=== PATIENT | female | born 1985 | race Caucasian/White ===

== ENCOUNTER 2020-08-15 15:49 | Emergency (ER) | payer MEDICAID, SELFPAY ==
[2020-08-15 15:57] VITALS: BP 119/76; PULSE 83; RESP 16; TEMP 37.1; O2SAT 100
[2020-08-15 16:11] VITALS: BP 119/76; PULSE 83; RESP 16; TEMP 37.1; O2SAT 100; BMI 30.2
--- NOTE | 2020-08-15 16:16 | ED.WOUNDLAC ---
HPI - Wound/Laceration General Chief Complaint: Wound/Laceration Stated Complaint: lip bleeding Time Seen by Provider: 08/15/20 16:15 Source: patient Mode of arrival: ambulatory Limitations: no limitations History of Present Illness HPI narrative: Patient is a 34-year-old female with no significant past medical history who presents to the emergency department complaining of upper lip pain. Patient states she had a lip ring in her upper central lip placed in March, stated had healed well but today when she was hugging her boyfriend she went to pull away and it got caught on his sweater and ripped out. It was fully intact but she did not bring it with her so I could inspect it. She will look at it again when she gets home. States it did bleed but the bleeding has stopped. Denies numbness or tingling. Onset (ago): minute(s) Place: home Related Data Allergies Allergy/AdvReac Type Severity Reaction Status Date / Time No Known Allergies Allergy Unverified 07/15/20 17:26 Review of Systems Review of Systems: Yes all other systems are reviewed and are negative [facility] Past Medical History Attestation statement: The following information was validated with the patient. Medical History Herpes Social History Social History Advance Directives: No Advance Directives Information Provided: No Physical Exam Vital Signs: Vital Signs: Vital Signs Temp Pulse Resp BP Pulse Ox 08/15/20 16:11 98.7 F 83 16 119/76 100 08/15/20 15:57 98.7 F 83 16 119/76 100 Body Mass Index 30.2 Const: General: cooperative, healthy appearing and comfortable (Patient is slightly teary) Orientation/consciousness: patient oriented x3 HENMT: Head: Yes normal to inspection Ears: hearing grossly normal bilaterally General nose exam: Normal external nose present (Three nose rings intact and fully healed) Face and sinus: Yes normal facial exam Mouth: Normal oral and palatal mucosa present Mouth/tongue images: 1. 1 cm laceration, not bleeding. Swollen, no foreign bodies palpated Eyes: General: appearance normal, both eyes and all related structures Neck: Neck: Yes normal visual inspection Neuro: General: patient oriented x3 Course Course Course Narrative: Advised lip laceration will heal on its own, avoid spicy foods. Use ice and ibuprofen as needed. Discharge Plan Discharge Clinical Impression: Laceration of lip without foreign body Qualifiers: Encounter type: initial encounter Qualified Code(s): S01.511A - Laceration without foreign body of lip, initial encounter Patient Disposition: Home, Self-Care Additional Instructions: Use ice and ibuprofen as needed. Avoid spicy foods. If the area becomes red, any discharge happens or you spike a fever, please come in for re-evaluation or see your PCP as these could be signs of infection.
== END 2020-08-15 16:36 | disposition home or self-care (01) ==
PROVIDERS: Emergency Provider Emergency Medicine
DX: S01.511A Laceration without foreign body of lip, initial encounter (principal); W45.8XXA Other foreign body or object entering through skin, initial encounter; Y93.9 Activity, unspecified; Y92.9 Unspecified place or not applicable; Y99.9 Unspecified external cause status
CPT/HCPCS: 99283

== ENCOUNTER 2020-09-04 18:17 | Emergency (ER) | payer MEDICAID, SELFPAY ==
[2020-09-04 18:31] VITALS: BP 127/81; PULSE 70; RESP 18; TEMP 37; O2SAT 99; BMI 30.7
--- NOTE | 2020-09-04 18:34 | ED.ABDPAIN ---
HPI - Abdominal Pain General Chief Complaint: Abdominal Pain Stated Complaint: abd pain Time Seen by Provider: 09/04/20 18:24 Source: patient Mode of arrival: ambulatory Limitations: no limitations History of Present Illness HPI narrative: Patient comes to the emergency room complaining of epigastric pain. Patient states it is a burning sensation. The discomfort started approximately 1 week ago. Patient states every time she eats she has sharp pain in the epigastric region. Patient states she has had history of gastritis in the past. Patient stop taking omeprazole a few months ago because she was doing well. Patient reports 1 episode of vomiting throughout the week, at this time no vomiting, no diarrhea. Related Data Previous Rx's Medication Instructions Recorded omeprazole 40 mg PO DAILY #10 cap 09/04/20 Allergies Allergy/AdvReac Type Severity Reaction Status Date / Time No Known Allergies Allergy Verified 09/04/20 18:30 Review of Systems Review of Systems Constitutional : No Weight loss, No Fever, No Chills, No Night Sweats, No Fatigue, No Malaise ENT/Mouth : No Hearing loss, No Ear Pain, No Nasal Congestion, No Sinus Pain, No Hoarseness, No sore throat, No Rhinorrhea, No Swallowing Difficulty Eyes: No Eye Pain, No Swelling, No Redness, No Foreign Body, No Discharge, No Vision Changes Cardiovascular : No Chest Pain, No SOB, No Dyspnea on Exertion, No Orthopnea, No Edema, No Palpitations Respiratory : No Cough, No Sputum, No Wheezing, No Smoke Exposure, No Dyspnea Gastrointestinal : Patient complaining of nausea, no vomiting, no diarrhea, complaining of epigastric pain worse with meals. No Hematochezia, No Melena Genitourinary : no irregular bleeding, No Dysuria, No Urinary Frequency, No Hematuria, No Urinary Incontinence, No Urgency, No Flank Pain, No Urinary Flow Changes, No Hesitancy Musculoskeletal : No joint pain, No Myalgias, No Joint Swelling Skin : No Skin Lesions, No rash Neuro : No Weakness, No Numbness, No Paresthesias, No Loss of Consciousness, No Dizziness, No Headache Psych : No Anxiety/Panic, No Depression, No SI/HI/AH/VH, No Social Issues, Heme/Lymph: No Bruising, No Bleeding,No Lymphadenopathy Endocrine : No Polyuria, No Polydipsia, No Temperature Intolerance Physical Exam Vital Signs: Vital Signs: Last Vital Signs Temp 98.6 F 09/04/20 20:55 Pulse 57 09/04/20 20:55 Resp 16 09/04/20 20:55 BP 107/69 09/04/20 20:55 Pulse Ox 99 09/04/20 20:55 Body Mass Index 30.7 Appearance: Alert. Oriented X3. No acute distress. Eyes: Pupils equal, round and reactive to light. ENT: Pharynx normal. Neck: Normal inspection. Neck supple. No lymph nodes noted. No crepitus CVS: Normal heart rate and rhythm. Pulses normal. Normal S1 and S2 Respiratory: No respiratory distress. Breath sounds normal. No Wheezing. No rales Abdomen: no right upper quadrant pain, pain to palpation in the epigastric area, abdomen soft, rest of the abdomen nontender, normal bowel sounds Skin: Skin warm and dry. Normal skin color. Normal skin turgor. Extremities: No lower extremity edema. No lower extremity edema. No Lacerations. No Rash Neuro: Oriented X 3. No motor deficit. No sensory deficit. Moving all extermities. No slurred speech. Course Course Course Narrative: I discussed the labs and imaging with the patient, patient does not have cholecystitis. Patient is source of pain in the epigastric area likely to reoccurring peptic ulcer disease versus gastritis. 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 MDM - Abdominal Pain Lab Data Result diagrams: 09/04/20 18:43 09/04/20 18:43 Labs: Lab Results 09/04/20 09/04/20 09/04/20 Range/Units 18:43 18:43 19:13 WBC 6.6 (4.8-10.8) X10*3/uL RBC 3.92 L (4.20-5.50) X10*6/uL Hgb 12.4 (12.0-16.0) g/dl Hct 36.0 L (37-47) % MCV 91.8 (80-98) fL MCH 31.6 (27.0-33.0) pg MCHC 34.4 (31.0-35.0) g/dl RDW 12.4 (11.0-16.0) % Plt Count 348 (160-400) X10*3/uL MPV 10.3 (9.4-12.3) fL Immature Gran % (Auto) 0.2 (0.0-0.4) % Neut % (Auto) 42.2 L (45-73) % Lymph % (Auto) 37.4 (20-40) % [place] % (Auto) 12.1 H (2-11) % Eos % (Auto) 7.2 H (0-4) % Baso % (Auto) 0.9 (0-2) % Lymph # (Auto) 2.5 (1.2-4.9) X10*3/uL [place] # (Auto) 0.8 (0.1-1.2) X10*3/uL Eos # (Auto) 0.5 H (0.0-0.4) X10*3/uL Baso # (Auto) 0.1 (0.0-0.2) X10*3/uL Abs Immat Gran (auto) 0.01 (0.00-0.03) X10*3/uL Absolute Neuts (auto) 2.8 (2.0-8.3) X10*3/uL Absolute Nucleated RBC 0.000 (0.0-0.012) X10*3/uL Nucleated RBC % (auto) 0.0 (0.0-0.2) /100WBC Sodium 137 (135-145) mmol/L Potassium 3.7 (3.3-5.1) mmol/l Chloride 104 (96-108) mmol/L Carbon Dioxide 25 (22-29) mmol/L Anion Gap 12 (12-20) BUN 12 (9-16) mg/dL Creatinine 0.93 (0.5-1.4) mg/dL Estim Creat Clear Calc 97.6 Estimated GFR > 60 Random Glucose 82 (60-115) mg/dL Calcium 8.9 (8.4-10.2) mg/dL Total Bilirubin 0.3 (0.0-1.0) mg/dL Direct Bilirubin < 0.2 (0.0-0.5) mg/dL AST 14 (5-31) U/L ALT 12 (0-31) U/L Alkaline Phosphatase 68 (39-117) U/L Total Protein 6.7 (6.5-8.0) g/dL Albumin 4.1 (3.5-5.0) g/dL Lipase 40 (8-78) U/L Urine Test NEGATIVE (NEGATIVE) Imaging Data US - abdomen: Radiologist's impression: PANCREAS: The visualized pancreatic head and body are normal in appearance. The remainder of the pancreas is obscured from visualization by the overlying bowel gas. LIVER: The liver is of normal size and echogenicity without focal lesions nor intrahepatic biliary ductal dilation. GALLBLADDER: Normal. The gallbladder is physiologically distended without evidence of stones, sludge, polyps, wall thickening or pericholecystic fluid. COMMON BILE DUCT: Normal in caliber measuring 0.3 cm in diameter. RIGHT KIDNEY: Normal. No hydronephrosis. No renal calculi or focal parenchymal lesions. The kidney measures 9.8 cm in maximum dimension. FREE FLUID: None. Discharge Plan Discharge Clinical Impression: Gastritis Qualifiers: Gastritis type: unspecified gastritis Chronicity: unspecified Gastritis bleeding: without bleeding Qualified Code(s): K29.70 - Gastritis, unspecified, without bleeding Patient Disposition: Home, Self-Care Instructions: Gastritis (ED) Additional Instructions: Please follow-up with your primary care physician tomorrow. If you have any worsening or new symptoms, please return to the emergency room or call 911 Prescriptions: New omeprazole 40 mg capsule,delayed release(DR/EC) 40 mg PO DAILY Qty: 10 RF: 0 PMFSH Past Medical History Medical History Herpes Stomach ulcer Surgical History Hx of breast reduction, elective Social History Social History Alcohol intake: current Alcohol intake frequency: a few times a week Smoking Status: Current some day smoker Smoked in Last 30 Days: Yes Use of substances other than those prescribed or required for medical reasons: No Advance Directives: No Advance Directives Information Provided: Yes
--- NOTE | 2020-09-04 18:37 | US_ITS ---
EXAMINATION: ABDOMINAL ULTRASOUND LIMITED CLINICAL INFORMATION: Epigastric pain. COMPARISON: None. TECHNIQUE: Real-time imaging of the right upper quadrant abdominal viscera. FINDINGS: PANCREAS: The visualized pancreatic head and body are normal in appearance. The remainder of the pancreas is obscured from visualization by the overlying bowel gas. LIVER: The liver is of normal size and echogenicity without focal lesions nor intrahepatic biliary ductal dilation. GALLBLADDER: Normal. The gallbladder is physiologically distended without evidence of stones, sludge, polyps, wall thickening or pericholecystic fluid. COMMON BILE DUCT: Normal in caliber measuring 0.3 cm in diameter. RIGHT KIDNEY: Normal. No hydronephrosis. No renal calculi or focal parenchymal lesions. The kidney measures 9.8 cm in maximum dimension. FREE FLUID: None. US/US abdomen limited IMPRESSION: Unremarkable limited right upper quadrant ultrasound.
[2020-09-04] MEDS: Magnesium Hydrox/Alum Hydrox 30 ML ORAL.SUSP PO (18:47)
[2020-09-04] MEDS: Lidocaine HCl Viscous 2 % 15 ML SOLUTION MUCOUS MEM (18:47)
[2020-09-04 18:49] LABS: Basophils Absolute Auto 0.1 X10*3/uL (0.0-0.2); Basophils Percent Auto 0.9 % (0-2); Eosinophils Absolute Auto 0.5 X10*3/uL (0.0-0.4); Eosinophils Percent Auto 7.2 % (0-4); Hemoglobin 12.4 g/dl (12.0-16.0); Imm Gran Abs Auto 0.01 X10*3/uL (0.00-0.03); Imm Gran Pct Auto 0.2 % (0.0-0.4); Lymphocytes Absolute Auto 2.5 X10*3/uL (1.2-4.9); Lymphocytes Percent Auto 37.4 % (20-40); MANUAL DIFF FLAG NO; Mean Corpuscular HGB Conc 34.4 g/dl (31.0-35.0); Mean Corpuscular Hemoglobin 31.6 pg (27.0-33.0); Mean Corpuscular Volume 91.8 fL (80-98); Mean Platelet Volume 10.3 fL (9.4-12.3); Monocytes Absolute Auto 0.8 X10*3/uL (0.1-1.2); Monocytes Percent Auto 12.1 % (2-11); Neutrophils Absolute Auto 2.8 X10*3/uL (2.0-8.3); Neutrophils Percent Auto 42.2 % (45-73); Platelet Count 348 X10*3/uL (160-400); Red Blood Count 3.92 X10*6/uL (4.20-5.50); Red Cell Distribution Width 12.4 % (11.0-16.0); White Blood Count 6.6 X10*3/uL (4.8-10.8)
[2020-09-04 19:15] LABS: Alanine Aminotransferase 12 U/L (0-31); Albumin Level 4.1 g/dL (3.5-5.0); Alkaline Phosphatase 68 U/L (39-117); Anion Gap 12 (12-20); Aspartate Amino Transferase 14 U/L (5-31); Bilirubin Direct < 0.2 mg/dL (0.0-0.5); Bilirubin Total 0.3 mg/dL (0.0-1.0); Blood Urea Nitrogen 12 mg/dL (9-16); Calcium 8.9 mg/dL (8.4-10.2); Carbon Dioxide 25 mmol/L (22-29); Chloride 104 mmol/L (96-108); Creatinine Clr Calc Pharmacy 97.6; Estimated Glomerular Filt Rate > 60; Glucose Random 82 mg/dL (60-115); Lipase 40 U/L (8-78); Potassium 3.7 mmol/l (3.3-5.1); Sodium 137 mmol/L (135-145); Total Protein 6.7 g/dL (6.5-8.0)
[2020-09-04 19:23] LABS: UPreg QC Valid YES; Urine Pregnancy NEGATIVE (NEGATIVE)
[2020-09-04 20:00] VITALS: BP 106/75; PULSE 62; RESP 18; TEMP 36.8; O2SAT 98
[2020-09-04 20:55] VITALS: BP 107/69; PULSE 57; RESP 16; TEMP 37; O2SAT 99
== END 2020-09-04 21:35 | disposition home or self-care (01) ==
PROVIDERS: Emergency Provider Emergency Medicine
DX: K29.70 Gastritis, unspecified, without bleeding (principal); R10.13 Epigastric pain; Z79.899 Other long term (current) drug therapy
CPT/HCPCS: 36415; 76705; 80048; 80076; 81025; 83690; 85025; 99284

== ENCOUNTER 2020-09-25 09:28 | Observation (INO) | payer MEDICAID, SELFPAY ==
[2020-09-25 09:56] VITALS: PULSE 80; RESP 20; TEMP 36.6; O2SAT 98; BMI 31.0
--- NOTE | 2020-09-25 09:57 | US_ITS ---
EXAMINATION: US ABDOMEN COMPLETE CLINICAL INFORMATION: Nausea vomiting and upper abdominal pain. Question cholecystitis.. COMPARISON: September 04, 2020 TECHNIQUE: Real-time imaging of the abdominal viscera. FINDINGS: PANCREAS: Normal. ABDOMINAL AORTA: The proximal, mid, and distal segments are normal in caliber. INFERIOR VENA CAVA: Visualized portions are normal. LIVER: Normal. The liver is normal in size. The liver contour is normal. Parenchymal echogenicity is normal. No focal hepatic lesion. There is no intrahepatic biliary duct dilatation seen. GALLBLADDER: There is tenderness to palpation while scanning. On the provided images The gallbladder is physiologically distended without evidence of stones, sludge, polyps, wall thickening or pericholecystic fluid. COMMON BILE DUCT: On the provided images the common bile duct appears to measure 7 mm distally and questionably up to 1.5 cm in its mid region with some echogenic filling defects which would be representing calculi if this definitely is a common bile duct. No calculi were identified on the previous study of September 04, 2020 and the common bile duct was not dilated. MRCP may be of help in further evaluation of these findings. RIGHT KIDNEY: Normal. No hydronephrosis. No renal calculi or focal parenchymal lesions. The kidney measures 10.5 cm in maximum dimension. LEFT KIDNEY: Normal. No hydronephrosis. No renal calculi or focal parenchymal lesions. The kidney measures 10.8 cm in maximum dimension. SPLEEN: Normal. The spleen measures 9.1 cm in maximum dimension. FREE FLUID: None. US/US abdomen complete IMPRESSION: No intrahepatic bile duct dilatation or evidence of acute cholecystitis. On provided films question of dilated common bile duct with calculi however on previous ultrasound examination no definite calculi were identified within the gallbladder. Further evaluation with MRCP would be helpful in clarification.
--- NOTE | 2020-09-25 09:57 | ED_ITS ---
HPI - Nausea/Vomiting/Diarrhea General Chief complaint: Nausea/Vomiting/Diarrhea Stated complaint: VOMITTING Time Seen by Provider: 09/25/20 09:49 Source: patient Mode of arrival: ambulatory Limitations: no limitations History of Present Illness HPI Narrative: 34yoF c PMHx of stomach ulcer and herpes presenting to the ED c c/o N/V and severe upper abd pain x 2 days. Denies fevers, chills, back pain, dysuria, vaginal bleeding/discharge or thoughts or . Denies recent travel or sick contacts. Denies any other symptom complaints or concerns at this time. Related Data Previous Rx's Medication Instructions Recorded omeprazole 40 mg PO DAILY #10 cap 09/04/20 Allergies Allergy/AdvReac Type Severity Reaction Status Date / Time No Known Allergies Allergy Verified 09/04/20 18:30 Review of Systems Review of Systems: Constitutional : No Fever, No Chills, No Night Sweats, No Fatigue, No Malaise Cardiovascular : No Chest Pain, No SOB Respiratory : No Cough, No Sputum, No Wheezing, No Dyspnea Gastrointestinal : + Nausea, + Vomiting, No Diarrhea, + abdominal Pain, No Hematochezia, No Melena Genitourinary : No irregular bleeding, No Dysuria, No Urinary Frequency, No Hematuria,No Urinary Incontinence, No Urgency, No Flank Pain Musculoskeletal : No joint pain, No Myalgias, No Joint Swelling Skin : No Skin Lesions, No rash Neuro : No Weakness, No Numbness, No Paresthesias, No Loss of Consciousness, No Dizziness, No Headache Heme/Lymph: No Lymphadenopathy Endocrine : No Temperature Intolerance Yes all other systems are reviewed and are negative PMFSH Past Medical History Attestation statement: The following information was validated with the patient. Medical History Herpes Stomach ulcer Surgical History Hx of breast reduction, elective Social History Social History Alcohol intake: current Alcohol intake frequency: a few times a week Smoking Status: Current every day smoker Use of substances other than those prescribed or required for medical reasons: No Advance Directives: No Advance Directives Information Provided: No Physical Exam Vital Signs: Vital Signs: Last Vital Signs Temp 97.8 F 09/25/20 09:56 Pulse 80 09/25/20 09:56 Resp 16 09/25/20 12:27 Pulse Ox 98 09/25/20 09:56 Body Mass Index 31.0 vital signs have been reviewed as normal and appeared to be correct. Blood pressure normal. Heart rate normal. Respiration rate normal. Temperature normal. Oxygen saturation normal. Appearance: Alert. Oriented X3. No acute distress. Head: Normal external exam. Normocephalic. Eyes: PERRLA. EOMI. Conjunctiva and sclera normal. Eyelids normal. ENT: Pharynx normal. Uvula midline. Moist mucous membranes. No trismus noted. No drooling noted. No muffled voice noted. Neck: Normal inspection. Neck supple. FROM. No adenopathy. No meningeal signs. CVS: Normal heart rate and rhythm. Heart sound normal. No murmurs noted. Pulses normal throughout. Respiratory: No respiratory distress. Painless inspiration. Breath sounds normal. No wheezes/rales/rhonchi noted. Chest nontender. No accessory muscle usage noted or decreased air movement noted. Abdomen: Soft and TTP at upper/epigastric abdomen with guarding. No rigidity. Positive Pagan sign. Bowel sounds normal in all 4 quadrants. No distention noted. No organomegaly noted. No visible injury noted. No rebound tenderness. Negative Rovsing sign. Negative obturator's sign. Negative psoas sign. Back: No CVA tenderness. Full range of motion noted. Skin: Skin warm and dry. Normal skin color. Normal skin turgor. No rashes/lesions/lacerations noted. Extremities: Extremities exhibit normal range of motion. Extremities nontender. Neuro: Oriented X 3. No motor deficit. No sensory deficit. Reflexes normal. Course Course Course Narrative: 9:55am - 34yoF c PMHx of stomach ulcer and herpes presenting to the ED c c/o N/V and severe upper abd pain x 2 days. - Concern for Cholecystitis vs pancreatitis vs viral syndrome. - Plan: Labs, UA, US pf abd. Provide a L of IV fluids, 4 mg of Zofran and 2 mg of morphine as patient does not want anything too strong. Then re-evaluate Reevaluation(s) Reevaluation #1: [place] [id number]. Otherwise all other labs are within normal limits. Serum quant negative for . UA within normal limits no evidence of UTI. COVID swab negative. Ultrasound of abdomen questioning possible calculi in the common bile duct therefore CT scan abdomen without contrast ordered and revealed possible acute appendicitis therefore Dr. Santiago was consulted patient was started on Zosyn after blood cultures were obtained. Lactic acid not obtain as patient does not meet sepsis criteria. Patient will be admitted for appendicitis. Patient un codys agrees with this plan. Time: 15:00 MDM - Nausea/Vomiting/Diarrhea Medical Records Attestation: I reviewed the patient's medical records. Lab Data Attestation: I reviewed the patient's lab results. Result diagrams: 09/25/20 10:04 09/25/20 10:04 Labs: Lab Results 09/25/20 09/25/20 09/25/20 Range/Units 10:04 10:04 10:04 WBC 17.1 H (4.8-10.8) X10*3/uL RBC 4.25 (4.20-5.50) X10*6/uL Hgb 13.1 (12.0-16.0) g/dl Hct 38.9 (37-47) % MCV 91.5 (80-98) fL MCH 30.8 (27.0-33.0) pg MCHC 33.7 (31.0-35.0) g/dl RDW 12.2 (11.0-16.0) % Plt Count 304 (160-400) X10*3/uL MPV 11.0 (9.4-12.3) fL Immature Gran % (Auto) 0.4 (0.0-0.4) % Neut % (Auto) 90.1 H (45-73) % Lymph % (Auto) 4.3 L (20-40) % [place] % (Auto) 4.9 (2-11) % Eos % (Auto) 0.1 (0-4) % Baso % (Auto) 0.2 (0-2) % Lymph # (Auto) 0.7 L (1.2-4.9) X10*3/uL [place] # (Auto) 0.8 (0.1-1.2) X10*3/uL Eos # (Auto) 0.0 (0.0-0.4) X10*3/uL Baso # (Auto) 0.0 (0.0-0.2) X10*3/uL Abs Immat Gran (auto) 0.06 H (0.00-0.03) X10*3/uL Absolute Neuts (auto) 15.4 H (2.0-8.3) X10*3/uL Absolute Nucleated RBC 0.000 (0.0-0.012) X10*3/uL Nucleated RBC % (auto) 0.0 (0.0-0.2) /100WBC Smear Tech's Comments VERIFIED PT 12.6 (10.8-13.0) SEC INR 1.1 (0.9-1.1) Sodium 138 (135-145) mmol/L Potassium 4.2 (3.3-5.1) mmol/l Chloride 102 (96-108) mmol/L Carbon Dioxide 23 (22-29) mmol/L Anion Gap 17 (12-20) BUN 14 (9-16) mg/dL Creatinine 0.80 (0.5-1.4) mg/dL Estim Creat Clear Calc 114.0 Estimated GFR > 60 Random Glucose 134 H D (60-115) mg/dL Calcium 9.3 (8.4-10.2) mg/dL Magnesium 1.8 (1.6-2.6) mg/dL Total Bilirubin 0.5 (0.0-1.0) mg/dL Direct Bilirubin 0.2 (0.0-0.5) mg/dL AST 12 (5-31) U/L ALT 13 (0-31) U/L Alkaline Phosphatase 66 (39-117) U/L Total Protein 7.3 (6.5-8.0) g/dL Albumin 4.5 (3.5-5.0) g/dL Lipase 13 (8-78) U/L Beta HCG, Quant mIU/mL Urine Color Urine Appearance Urine pH (5.0-8.0) Ur Specific [place] (1.005-1.025) Urine Protein (NEG-TRACE) MG/DL Urine Glucose (UA) (NEG) MG/DL Urine Ketones (NEG) MG/DL Urine Blood (NEG) Urine Nitrite (NEG) Ur Leukocyte Esterase (NEG) Urine RBC (0) /HPF Urine WBC (0-4) /HPF Ur Squamous Epith Cells /LPF Urine Bacteria /LPF Urine Mucus /LPF COVID-19 (ESVIN) (Negative) COVID-19 Clin Com 09/25/20 09/25/20 09/25/20 Range/Units 10:04 10:42 12:29 WBC (4.8-10.8) X10*3/uL RBC (4.20-5.50) X10*6/uL Hgb (12.0-16.0) g/dl Hct (37-47) % MCV (80-98) fL MCH (27.0-33.0) pg MCHC (31.0-35.0) g/dl RDW (11.0-16.0) % Plt Count (160-400) X10*3/uL MPV (9.4-12.3) fL Immature Gran % (Auto) (0.0-0.4) % Neut % (Auto) (45-73) % Lymph % (Auto) (20-40) % [place] % (Auto) (2-11) % Eos % (Auto) (0-4) % Baso % (Auto) (0-2) % Lymph # (Auto) (1.2-4.9) X10*3/uL [place] # (Auto) (0.1-1.2) X10*3/uL Eos # (Auto) (0.0-0.4) X10*3/uL Baso # (Auto) (0.0-0.2) X10*3/uL Abs Immat Gran (auto) (0.00-0.03) X10*3/uL Absolute Neuts (auto) (2.0-8.3) X10*3/uL Absolute Nucleated RBC (0.0-0.012) X10*3/uL Nucleated RBC % (auto) (0.0-0.2) /100WBC Smear Tech's Comments PT (10.8-13.0) SEC INR (0.9-1.1) Sodium (135-145) mmol/L Potassium (3.3-5.1) mmol/l Chloride (96-108) mmol/L Carbon Dioxide (22-29) mmol/L Anion Gap (12-20) BUN (9-16) mg/dL Creatinine (0.5-1.4) mg/dL Estim Creat Clear Calc Estimated GFR Random Glucose (60-115) mg/dL Calcium (8.4-10.2) mg/dL Magnesium (1.6-2.6) mg/dL Total Bilirubin (0.0-1.0) mg/dL Direct Bilirubin (0.0-0.5) mg/dL AST (5-31) U/L ALT (0-31) U/L Alkaline Phosphatase (39-117) U/L Total Protein (6.5-8.0) g/dL Albumin (3.5-5.0) g/dL Lipase (8-78) U/L Beta HCG, Quant < 2 mIU/mL Urine Color YELLOW Urine Appearance CLEAR Urine pH 8.0 (5.0-8.0) Ur Specific [place] 1.020 (1.005-1.025) Urine Protein TRACE (NEG-TRACE) MG/DL Urine Glucose (UA) NEG (NEG) MG/DL Urine Ketones NEG (NEG) MG/DL Urine Blood TRACE (NEG) Urine Nitrite NEG (NEG) Ur Leukocyte Esterase NEG (NEG) Urine RBC 1-4 (0) /HPF Urine WBC 0 (0-4) /HPF Ur Squamous Epith Cells TRACE /LPF Urine Bacteria NONE /LPF Urine Mucus TRACE /LPF COVID-19 (ESVIN) Negative (Negative) COVID-19 Clin Com See Note Imaging Data Abdominal ultrasound: Attestation: I personally reviewed and interpreted this imaging study as follows: Radiologist's impression: IMPRESSION: No intrahepatic bile duct dilatation or evidence of acute cholecystitis. On provided films question of dilated common bile duct with calculi however on previous ultrasound examination no definite calculi were identified within the gallbladder. Further evaluation with MRCP would be helpful in clarification. CT scan - abdomen: Attestation: I personally reviewed and interpreted this imaging study as follows: Radiologist's impression: IMPRESSION: Findings consistent with acute appendicitis. Clinical correlation suggested. No common bile duct dilatation or calculi identified and ultrasound finding may have been related to imaging of the duodenum bony bump at prominent seen at the confluence of the common hepatic, common bile, and cystic ducts. This critical result was discussed with VALENTIN Ace at 1:55 PM on September 25, 2020 and it was ascertained that the content and urgency of the report was understood at the time of direct communication. Critical Care Time Critical Care Time Critical Care Time: Yes Total Critical Care Time: 60 Attestation: I personally attest to this time spent taking care of the patient Discharge Plan Discharge Clinical Impression: Acute appendicitis Patient Disposition: Admitted As Inpatient Prescriptions: No Action omeprazole 40 mg capsule,delayed release(DR/EC) 40 mg PO DAILY Qty: 10 RF: 0
[2020-09-25] MEDS: 0.9 % Sodium Chloride 1,000 ML 999 ML IVCONT (10:08)
[2020-09-25] MEDS: Morphine Sulfate 2 MG/ML CARTRIDGE IVPUSH (10:08)
[2020-09-25] MEDS: ondansetron HCL 4 MG/2 ML VIAL IVPUSH (10:08)
[2020-09-25 10:38] LABS: Basophils Percent Auto 0.2 % (0-2); Eosinophils Percent Auto 0.1 % (0-4); Hematocrit 38.9 % (37-47); Hemoglobin 13.1 g/dl (12.0-16.0); Imm Gran Abs Auto 0.06 X10*3/uL (0.00-0.03); Imm Gran Pct Auto 0.4 % (0.0-0.4); Lymphocytes Absolute Auto 0.7 X10*3/uL (1.2-4.9); Lymphocytes Percent Auto 4.3 % (20-40); MANUAL DIFF FLAG SCAN; Mean Corpuscular HGB Conc 33.7 g/dl (31.0-35.0); Mean Corpuscular Hemoglobin 30.8 pg (27.0-33.0); Mean Corpuscular Volume 91.5 fL (80-98); Monocytes Absolute Auto 0.8 X10*3/uL (0.1-1.2); Monocytes Percent Auto 4.9 % (2-11); Neutrophils Absolute Auto 15.4 X10*3/uL (2.0-8.3); Neutrophils Percent Auto 90.1 % (45-73); Platelet Count 304 X10*3/uL (160-400); Red Blood Count 4.25 X10*6/uL (4.20-5.50); Red Cell Distribution Width 12.2 % (11.0-16.0); SCAN SMEAR FLAG 1; White Blood Count 17.1 X10*3/uL (4.8-10.8)
[2020-09-25 10:45] LABS: INTERNATIONAL NORM RATIO 1.1 (0.9-1.1); Prothrombin Time 12.6 SEC (10.8-13.0)
[2020-09-25 11:01] LABS: COVID-19 Test Negative (Negative); IDNOW Serial# 9DD0AD1C
[2020-09-25 11:15] LABS: Alanine Aminotransferase 13 U/L (0-31); Albumin Level 4.5 g/dL (3.5-5.0); Alkaline Phosphatase 66 U/L (39-117); Anion Gap 17 (12-20); Aspartate Amino Transferase 12 U/L (5-31); Bilirubin Direct 0.2 mg/dL (0.0-0.5); Bilirubin Total 0.5 mg/dL (0.0-1.0); Blood Urea Nitrogen 14 mg/dL (9-16); Calcium 9.3 mg/dL (8.4-10.2); Carbon Dioxide 23 mmol/L (22-29); Chloride 102 mmol/L (96-108); Estimated Glomerular Filt Rate > 60; Glucose Random 134 mg/dL (60-115); Lipase 13 U/L (8-78); Magnesium 1.8 mg/dL (1.6-2.6); Potassium 4.2 mmol/l (3.3-5.1); Sodium 138 mmol/L (135-145); Total Protein 7.3 g/dL (6.5-8.0)
[2020-09-25 11:21] LABS: HCG Quantitative < 2 mIU/mL
[2020-09-25 11:30] LABS: SLIDE REVIEW VERIFIED
--- NOTE | 2020-09-25 11:43 | CT_ITS ---
EXAMINATION: CT ABDOMEN AND PELVIS WITHOUT CONTRAST CLINICAL INFORMATION: Pain. Question common bile duct stone. COMPARISON: Ultrasound of same day and September 04, 2020 TECHNIQUE: Multidetector volumetric imaging was performed from the superior aspect of the liver through the pubic symphysis. Sagittal and coronal reformatted images were obtained on the technologist's workstation. This CT examination was performed using dose optimization techniques as appropriate, variously including the following: *Automated exposure control *Adjustment of mA and/or kV according to patient size (this includes techniques or standardized protocols for targeted exams where dose is matched to indication/reason for exam; i.e. extremities or head) *Use of iterative reconstruction technique DLP: 657.10 mGy-cm FINDINGS: LUNG BASES: The visualized lung bases are unremarkable. No pleural or pericardial effusion. LIVER, GALLBLADDER, AND BILIARY TREE: The liver is normal in size, shape, and attenuation. No focal hepatic lesion or intrahepatic biliary ductal dilatation is present. Gallbladder is distended without evidence of gallbladder wall thickening or pericholecystic fluid. The common hepatic duct confluence measures up to 1.4 cm in diameter with no radiopaque filling defect appreciated and no common bile duct dilatation appreciated. Question whether ultrasound imaging may have been of the adjacent compressed duodenum. No dilated duct is seen in the region of the pancreatic head and no pancreatic ductal dilatation is identified. PANCREAS: Unremarkable. SPLEEN: Unremarkable. ADRENAL GLANDS: Unremarkable. KIDNEYS AND URETERS: The kidneys are normal in size, shape, and attenuation. No hydronephrosis, hydroureter, or calculi seen. No perinephric stranding. BLADDER: Unremarkable. GASTROINTESTINAL TRACT: No dilated loops of large or small bowel are evident. No evidence of acute diverticulitis. The appendix appears to be enlarged approximately 1 cm in diameter and there is a small amount of periappendiceal and mesenteric fat stranding within the cecum and periappendiceal region with small amount of free fluid. Findings may be related to early or mild acute appendicitis and clinical correlation is suggested. ABDOMINAL WALL: No significant hernia is appreciated. LYMPH NODES: No lymphadenopathy appreciated. VASCULAR: Unremarkable. PELVIC VISCERA: Unremarkable. OSSEOUS STRUCTURES: Unremarkable. CT/CT abdomen pelvis wo con IMPRESSION: Findings consistent with acute appendicitis. Clinical correlation suggested. No common bile duct dilatation or calculi identified and ultrasound finding may have been related to imaging of the duodenum bony bump at prominent seen at the confluence of the common hepatic, common bile, and cystic ducts. This critical result was discussed with VALENTIN Ace at 1:55 PM on September 25, 2020 and it was ascertained that the content and urgency of the report was understood at the time of direct communication.
--- NOTE | 2020-09-25 12:11 | PC.NURSE ---
PT TAKEN TO CT SCAN VIA STRETCHER
[2020-09-25 12:27] VITALS: RESP 16
[2020-09-25] MEDS: Morphine Sulfate 4 MG/ML CARTRIDGE 2 MG IVPUSH ×4 (12:27→21:15)
[2020-09-25 12:35] LABS: Glucose Urine UA NEG (NEG); Leukocyte Esterase Urine NEG (NEG); Nitrite Urine NEG (NEG); Urine Blood TRACE (NEG); Urine Ketones NEG (NEG); Urine Protein TRACE MG/DL (NEG-TRACE)
[2020-09-25 12:36] LABS: Appearance Urine CLEAR; Color Urine YELLOW
[2020-09-25 12:44] LABS: Mucus Urine TRACE /LPF; Squamous Epithelial Cell Urine TRACE /LPF; WBC Urine 0 /HPF (0-4)
[2020-09-25] MEDS: Metoclopramide HCl 10 MG/2 ML VIAL IVPUSH (15:06)
[2020-09-25] MEDS: Piperacillin Sodium/Tazobactam 3.375 GM in 0.9 % Sodium Chloride 50 ML IV ×2 (15:06→21:15)
--- NOTE | 2020-09-25 15:09 | PM.HPGS ---
History of Present Illness History of Present Illness Date of Service: 09/25/20 Chief complaint: early acute appendicitis Narrative: Wendie Armstrong is a 34 year old female Presenting with complaints of epigastric abdominal pain since 09/23/2020. Patient reports the onset of pain soon after eating and felt she may have had food poisoning. The pain was associated with nausea and vomiting. She also reports complaints of fever and chills. She denies any other sick contacts. She denies diarrhea or constipation, bloody stools or other abdominal symptoms. She subsequently presented to the emergency department and was found to be tender in the epigastrium. A CT of the abdomen and pelvis revealed a distended gallbladder with possible enlarged common bile duct. No stones were identified on CT scan. Also identified was a dilated appendix with some inflammatory changes surrounding suggestive of an early appendicitis[place] [address]. no evidence of perforation or abscess was identified. An ultrasound of the abdomen was also obtained and revealed no gallstones within the gallbladder or common bile duct. Review of Systems Constitutional: Constitutional: Reports chills, Reports fever(s), Denies headache(s) and Reports poor appetite ENT: Denies dizziness and Denies headache(s) Cardiovascular: Cardiovascular: Denies chest pain, Denies rapid heart rate, Denies palpitations and Denies slow heart rate Respiratory: Respiratory: Denies chest congestion, Denies cough, Denies pain on inspiration and Denies wheezing Gastrointestinal: Gastrointestinal: Reports abdominal pain, Denies bloating, Denies change in stool character, Denies constipation, Denies diarrhea, Reports nausea, Reports vomiting and Denies hematemesis Musculoskeletal: Musculoskeletal: Denies back pain, Denies arthralgias, Denies joint swelling and Denies numbness Integumentary/Breasts: Skin/Breast: Denies change in pigmentation, Denies erythema and Denies rash Neurologic: Denies confusion, Denies dizziness, Denies headache(s) and Denies numbness Psychiatric: Psychiatric: Denies anxiety, Denies confusion and Reports depression Comments: ADHD Endocrine: Endocrine: Denies palpitations Hematologic/Lymphatic: Hematologic/Lymphatic: Denies easy bleeding, Denies easy bruising and Denies lymphadenopathy Allergic/Immunologic: Allergic/Immunologic: Denies wheezing PMFSH Past Medical History Medical History Herpes Stomach ulcer Surgical History Surgical History Hx of breast reduction, elective Social History Social History Alcohol intake: current Alcohol intake frequency: a few times a week Smoking Status: Current every day smoker Use of substances other than those prescribed or required for medical reasons: No Advance Directives: No Advance Directives Information Provided: No Meds Allergies Allergy/AdvReac Type Severity Reaction Status Date / Time No Known Allergies Allergy Verified 09/04/20 18:30 Physical Exam Vital Signs: Vital Signs: Last Vital Signs Temp 97.8 F 09/25/20 09:56 Pulse 80 09/25/20 09:56 Resp 16 09/25/20 12:27 Pulse Ox 98 09/25/20 09:56 Body Mass Index 31.0 Const: General: cooperative, comfortable and well developed; No confusion Nutritional Appearance: well nourished Orientation/consciousness: patient oriented x3 and No confusion Eyes: Sclerae: sclerae normal EOM: EOMs intact bilaterally Neck: Neck: Yes normal visual inspection Resp: Effort & Inspection: normal respiratory effort, no cough and no respiratory distress Cardio: Jugular venous distension: no JVD Rate: regular rate Rhythm: regular rhythm GI: Inspection: Yes normal to inspection Palpation (GI): Soft to palpation, Tenderness to palpation present (GI) in the epigastrum and suprapubicly; Pagan's sign negative, psoas sign negative, with no rebound tenderness and Rovsing's sign negative, no guarding and not rigid Percussion: Yes normal to percussion Auscultation: normal bowel sounds Skin: General skin exam: dry skin Rashes: no rashes Neuro: General: patient oriented x3, no focal motor deficits and No confusion Extrem: General: Yes full ROM and Yes no clubbing, cyanosis or edema Results Results Labs: Short CBC 09/25/20 Range/Units 10:04 WBC 17.1 H (4.8-10.8) X10*3/uL Hgb 13.1 (12.0-16.0) g/dl Hct 38.9 (37-47) % Plt Count 304 (160-400) X10*3/uL BMP 09/25/20 10:04 Sodium 138 Potassium 4.2 Chloride 102 Carbon Dioxide 23 BUN 14 Creatinine 0.80 Calcium 9.3 Liver Function 09/25/20 Range/Units 10:04 Total Bilirubin 0.5 (0.0-1.0) mg/dL Direct Bilirubin 0.2 (0.0-0.5) mg/dL AST 12 (5-31) U/L ALT 13 (0-31) U/L Alkaline Phosphatase 66 (39-117) U/L Albumin 4.5 (3.5-5.0) g/dL Urine 09/25/20 Range/Units 12:29 Urine Color YELLOW Urine Appearance CLEAR Urine pH 8.0 (5.0-8.0) Ur Specific [place] 1.020 (1.005-1.025) Urine Protein TRACE (NEG-TRACE) MG/DL Urine Glucose (UA) NEG (NEG) MG/DL CT ABDOMEN AND PELVIS (09/25/2020) FINDINGS: LUNG BASES: The visualized lung bases are unremarkable. No pleural or pericardial effusion. LIVER, GALLBLADDER, AND BILIARY TREE: The liver is normal in size, shape, and attenuation. No focal hepatic lesion or intrahepatic biliary ductal dilatation is present. Gallbladder is distended without evidence of gallbladder wall thickening or pericholecystic fluid. The common hepatic duct confluence measures up to 1.4 cm in diameter with no radiopaque filling defect appreciated and no common bile duct dilatation appreciated. Question whether ultrasound imaging may have been of the adjacent compressed duodenum. No dilated duct is seen in the region of the pancreatic head and no pancreatic ductal dilatation is identified. PANCREAS: Unremarkable. SPLEEN: Unremarkable. ADRENAL GLANDS: Unremarkable. KIDNEYS AND URETERS: The kidneys are normal in size, shape, and attenuation. No hydronephrosis, hydroureter, or calculi seen. No perinephric stranding. BLADDER: Unremarkable. GASTROINTESTINAL TRACT: No dilated loops of large or small bowel are evident. No evidence of acute diverticulitis. The appendix appears to be enlarged approximately 1 cm in diameter and there is a small amount of periappendiceal and mesenteric fat stranding within the cecum and periappendiceal region with small amount of free fluid. Findings may be related to early or mild acute appendicitis and clinical correlation is suggested. ABDOMINAL WALL: No significant hernia is appreciated. LYMPH NODES: No lymphadenopathy appreciated. VASCULAR: Unremarkable. PELVIC VISCERA: Unremarkable. OSSEOUS STRUCTURES: Unremarkable. CT/CT abdomen pelvis wo con IMPRESSION: Findings consistent with acute appendicitis. Clinical correlation suggested. No common bile duct dilatation or calculi identified and ultrasound finding may have been related to imaging of the duodenum bony bump at prominent seen at the confluence of the common hepatic, common bile, and cystic ducts. EXAMINATION: US ABDOMEN COMPLETE CLINICAL INFORMATION: Nausea vomiting and upper abdominal pain. Question cholecystitis.. COMPARISON: September 04, 2020 TECHNIQUE: Real-time imaging of the abdominal viscera. FINDINGS: PANCREAS: Normal. ABDOMINAL AORTA: The proximal, mid, and distal segments are normal in caliber. INFERIOR VENA CAVA: Visualized portions are normal. LIVER: Normal. The liver is normal in size. The liver contour is normal. Parenchymal echogenicity is normal. No focal hepatic lesion. There is no intrahepatic biliary duct dilatation seen. GALLBLADDER: There is tenderness to palpation while scanning. On the provided images The gallbladder is physiologically distended without evidence of stones, sludge, polyps, wall thickening or pericholecystic fluid. COMMON BILE DUCT: On the provided images the common bile duct appears to measure 7 mm distally and questionably up to 1.5 cm in its mid region with some echogenic filling defects which would be representing calculi if this definitely is a common bile duct. No calculi were identified on the previous study of September 04, 2020 and the common bile duct was not dilated. MRCP may be of help in further evaluation of these findings. RIGHT KIDNEY: Normal. No hydronephrosis. No renal calculi or focal parenchymal lesions. The kidney measures 10.5 cm in maximum dimension. LEFT KIDNEY: Normal. No hydronephrosis. No renal calculi or focal parenchymal lesions. The kidney measures 10.8 cm in maximum dimension. SPLEEN: Normal. The spleen measures 9.1 cm in maximum dimension. FREE FLUID: None. US/US abdomen complete IMPRESSION: No intrahepatic bile duct dilatation or evidence of acute cholecystitis. On provided films question of dilated common bile duct with calculi however on previous ultrasound examination no definite calculi were identified within the gallbladder. Further evaluation with MRCP would be helpful in clarification. Assessment and Plan (1) Acute appendicitis: Qualifiers: Acute appendicitis type: with localized peritonitis Appendicitis abscess presence: without abscess Appendicitis gangrene presence: without gangrene Appendicitis perforation presence: without perforation Qualified Code(s): K35.30 - Acute appendicitis with localized peritonitis, without perforation or gangrene Status: Acute 34-year-old female presenting with complaints of epigastric abdominal pain, nausea, vomiting found to have tenderness in the epigastrium and suprapubic location. Pain is also associated with fever and chills. Workup with a CT indicates a dilated appendix which is fluid-filled with surrounding inflammation suggestive of acute appendicitis early . Workup for gallstones was negative on both CT and ultrasound. Liver functions are normal as well. Findings are suggestive of acute appendicitis which appears early by CT. there may be biliary duct dilation identified on CT and possibly seen on ultrasound. Patient's examination is consistent with early appendicitis. She will be admitted to the surgical service and started on IV antibiotics. I will keep her NPO , and reassess her in the morning. If the symptoms do not improve she may require a laparoscopic appendectomy. The patient understands and agrees with the plan.
[2020-09-25 17:03] VITALS: BP 141/66; PULSE 72; RESP 16
--- NOTE | 2020-09-25 17:03 | PC.NURSE ---
called to [facility] [place] for pt report, will call back.
--- NOTE | 2020-09-25 17:19 | PC.NURSE ---
[place] [facility] [place]gs.
[2020-09-25 17:36] VITALS: BP 99/54; PULSE 69; RESP 16; TEMP 37.1; O2SAT 100
[2020-09-25] MEDS: 0.9 % Sodium Chloride Flush 3 ML SYRINGE IVFLUSH ×2 (17:48→21:16)
[2020-09-25] MEDS: Dextrose 5 % and Lactated Ring 1,000 ML 125 ML IVCONT (17:48)
--- NOTE | 2020-09-25 18:02 | PC.NURSE ---
Pt to floor from ED. Walked with steady gait, VS stable. Educated pt on plan and medications. Gave pt PRN morphine per EMAR. Encouraged pt to ring for help if needed.
[2020-09-25 23:38] VITALS: BP 91/50; PULSE 74; RESP 18; TEMP 36.8; O2SAT 99
[2020-09-26] MEDS: Acetaminophen 325 MG TABLET 650 MG PO ×4 (01:57→22:49)
[2020-09-26] MEDS: oxyCODONE HCl Immed Release 5 MG TABLET PO ×3 (01:57→20:03)
[2020-09-26] MEDS: Dextrose 5 % and Lactated Ring 1,000 ML 125 ML IVCONT ×3 (01:58→20:04)
[2020-09-26] MEDS: Piperacillin Sodium/Tazobactam 3.375 GM in 0.9 % Sodium Chloride 50 ML IV ×4 (03:12→21:24)
[2020-09-26 03:57] VITALS: BP 96/57; PULSE 85; RESP 18; TEMP 36.8; O2SAT 97
[2020-09-26] MEDS: 0.9 % Sodium Chloride 1,000 ML 999 ML IVCONT (05:40)
--- NOTE | 2020-09-26 06:24 | PC.NURSE ---
P-PT STATES HAS NOT VOIDED SINCE 1400 YESTERDAY.BP-91/50 96/57.AMB PT TO BR UNABLE TO VOID.NO URGE.BLADDER SCANNED FOR 182 ML I- NOTIFIED.ORDERED 1000 ML NS BOLUS. E-BP-94/55 P-55 AFTER NS BOLUS.WILL CONTINUE TO MONITOR.
[2020-09-26 06:41] VITALS: BP 94/55; PULSE 55
[2020-09-26 07:00] LABS: MANUAL DIFF FLAG NO
[2020-09-26 07:08] LABS: Basophils Percent Auto 0.4 % (0-2); Eosinophils Absolute Auto 0.1 X10*3/uL (0.0-0.4); Eosinophils Percent Auto 1.5 % (0-4); Hematocrit 31.5 % (37-47); Hemoglobin 10.3 g/dl (12.0-16.0); Imm Gran Abs Auto 0.02 X10*3/uL (0.00-0.03); Imm Gran Pct Auto 0.3 % (0.0-0.4); Lymphocytes Absolute Auto 1.8 X10*3/uL (1.2-4.9); Lymphocytes Percent Auto 24.3 % (20-40); Mean Corpuscular HGB Conc 32.7 g/dl (31.0-35.0); Mean Corpuscular Hemoglobin 30.8 pg (27.0-33.0); Mean Corpuscular Volume 94.3 fL (80-98); Mean Platelet Volume 10.7 fL (9.4-12.3); Monocytes Absolute Auto 0.7 X10*3/uL (0.1-1.2); Monocytes Percent Auto 9.3 % (2-11); Neutrophils Absolute Auto 4.6 X10*3/uL (2.0-8.3); Neutrophils Percent Auto 64.2 % (45-73); Platelet Count 227 X10*3/uL (160-400); Red Blood Count 3.34 X10*6/uL (4.20-5.50); Red Cell Distribution Width 12.5 % (11.0-16.0); White Blood Count 7.2 X10*3/uL (4.8-10.8)
[2020-09-26 07:48] LABS: Blood Urea Nitrogen 9 mg/dL (9-16); Creatinine Clr Calc Pharmacy 111.2; Estimated Glomerular Filt Rate > 60; Glucose Random 105 mg/dL (60-115)
[2020-09-26 08:00] VITALS: BP 102/56; PULSE 76; RESP 20; TEMP 37.1; O2SAT 95
[2020-09-26 08:02] LABS: Anion Gap 11 (12-20); Calcium 7.5 mg/dL (8.4-10.2); Carbon Dioxide 26 mmol/L (22-29); Chloride 104 mmol/L (96-108); Potassium 3.7 mmol/l (3.3-5.1); Sodium 137 mmol/L (135-145)
[2020-09-26] MEDS: 0.9 % Sodium Chloride Flush 3 ML SYRINGE IVFLUSH (08:19)
--- NOTE | 2020-09-26 09:57 | MHC.CM.PN ---
Pt reports she lives with her children who are ages 15, 13, and 5. Pt works and drives, and is independent with all care and mobility. Pt has no services and no DME. pt does not have a HCP and declines to complete one today. Pt reports she sees a PCP at [facility] in [place]. pts current DC plan is home with no services pts car is in the C lot
--- NOTE | 2020-09-26 09:59 | PM.PNGS ---
Subjective Subjective Date of Service: 09/26/20 Patient reports: feels better and still having pain Interval history: overall the patient feels improved but is still having abdominal pain in the lower abdomen, less so in the epigastrium. She is still not very hungry but denies nausea or vomiting. Physical Exam Vital Signs: Vital Signs: Last Vital Signs Temp 98.7 F 09/26/20 08:00 Pulse 76 09/26/20 08:00 Resp 20 09/26/20 08:00 BP 102/56 L 09/26/20 08:00 Pulse Ox 95 09/26/20 08:00 Body Mass Index 31.0 Const: General: cooperative, healthy appearing and no acute distress Resp: Other: Breathing comfortably on room air, no respiratory distress GI: Other: soft, tender in the suprapubic and right lower quadrant. No palpable mass. On rebound tenderness. negative Rovsing sign. Skin: Other: warm and dry, no rash Progress Note: A&P Assessment and plan (1) Acute appendicitis: Status: Acute Assessment and Plan: overall patient is slightly improved from yesterday with decreased abdominal pain. Her WBC has normalized today. We discussed once again the possibility of requiring an appendectomy. The patient feels well enough that she wishes to continue with the IV antibiotics. If she is not improved by tomorrow, laparoscopic appendectomy or possible open may be required. Patient understands and agrees with the plan. Continue IV antibiotics and recheck CBC in a.m.. Fall Risk Details Current Medications: Current Medications Generic Name Dose Route Start Last Admin Trade Name Freq PRN Reason Stop Dose Admin Acetaminophen 650 mg 09/25/20 17:13 09/26/20 08:19 Acetaminophen 325 Mg Tablet PO 650 mg Q6H PRN Administration Pain, Mild (Pain Scale 1-3) Al Hydroxide/Mg Hydroxide 30 ml 09/25/20 17:13 Magnesium Hydrox/Alum Hydrox 30 Ml Oral.Susp PO Q4H PRN Heartburn/Nausea Piperacillin Sod/Tazobactam 50 mls @ 100 mls/hr 09/25/20 21:00 09/26/20 08:58 Sod 3.375 gm/ Sodium Chloride IV Infused Q6H MASHA Infusion Dextrose/Lactated Ringer's 1,000 mls @ 150 mls/hr 09/25/20 17:13 09/26/20 08:59 D5lr IVCONT Not Given .Q6H40M MASHA Magnesium Hydroxide 30 ml 09/25/20 17:13 Milk Of Magnesia 30 Ml Oral.Susp PO DAILY PRN Constipation Morphine Sulfate 2 mg 09/25/20 17:13 09/25/20 21:15 Morphine Sulfate 4 Mg/Ml Cartridge IVPUSH 2 mg Q2H PRN Administration Pain, Severe (Pain Scale 7-10) Ondansetron HCl 4 mg 09/25/20 17:13 Ondansetron Hcl 4 Mg/2 Ml Vial IVPUSH Q8H PRN Nausea and Vomiting Oxycodone HCl 5 mg 09/25/20 17:13 09/26/20 09:29 Oxycodone Hcl Immed Release 5 Mg Tablet PO 5 mg Q6H PRN Administration Pain, Moderate (Pain Scale 4-6 Pharmacy Consult 1 each 09/25/20 11:45 Consult Rx Perform Med Rec MISCELLANE ONCE PRN Consult order Sodium Chloride 3 ml 09/25/20 17:13 09/26/20 08:19 0.9 % Sodium Chloride Flush 3 Ml Syringe IVFLUSH 3 ml QSHIFT [facility] Administration Zolpidem Tartrate 5 mg 09/25/20 17:13 Zolpidem Tartrate 5 Mg Tablet PO BEDTIME PRN Insomnia Time Spent With Patient Time: Total time spent is greater than 50% in coordination of care (as documented) at patient's floor/unit and/or counseling patient: Time with patient: 15 - 24 minutes Results Laboratory Findings Labs: Laboratory Results - last 24 hr 09/25/20 09/25/20 09/25/20 10:04 10:04 10:04 WBC 17.1 H RBC 4.25 Hgb 13.1 Hct 38.9 MCV 91.5 MCH 30.8 MCHC 33.7 RDW 12.2 Plt Count 304 MPV 11.0 Immature Gran % (Auto) 0.4 Neut % (Auto) 90.1 H Lymph % (Auto) 4.3 L [place] % (Auto) 4.9 Eos % (Auto) 0.1 Baso % (Auto) 0.2 Lymph # (Auto) 0.7 L [place] # (Auto) 0.8 Eos # (Auto) 0.0 Baso # (Auto) 0.0 Abs Immat Gran (auto) 0.06 H Absolute Neuts (auto) 15.4 H Absolute Nucleated RBC 0.000 Nucleated RBC % (auto) 0.0 Smear Tech's Comments VERIFIED PT 12.6 INR 1.1 Sodium 138 Potassium 4.2 Chloride 102 Carbon Dioxide 23 Anion Gap 17 BUN 14 Creatinine 0.80 Estim Creat Clear Calc 114.0 Estimated GFR > 60 Random Glucose 134 H D Calcium 9.3 Magnesium 1.8 Total Bilirubin 0.5 Direct Bilirubin 0.2 AST 12 ALT 13 Alkaline Phosphatase 66 Total Protein 7.3 Albumin 4.5 Lipase 13 Beta HCG, Quant Urine Color Urine Appearance Urine pH Ur Specific [place] Urine Protein Urine Glucose (UA) Urine Ketones Urine Blood Urine Nitrite Ur Leukocyte Esterase Urine RBC Urine WBC Ur Squamous Epith Cells Urine Bacteria Urine Mucus COVID-19 (ESVIN) COVID-19 Fligoo 09/25/20 09/25/20 09/25/20 10:04 10:42 12:29 WBC RBC Hgb Hct MCV MCH MCHC RDW Plt Count MPV Immature Gran % (Auto) Neut % (Auto) Lymph % (Auto) [place] % (Auto) Eos % (Auto) Baso % (Auto) Lymph # (Auto) [place] # (Auto) Eos # (Auto) Baso # (Auto) Abs Immat Gran (auto) Absolute Neuts (auto) Absolute Nucleated RBC Nucleated RBC % (auto) Smear Tech's Comments PT INR Sodium Potassium Chloride Carbon Dioxide Anion Gap BUN Creatinine Estim Creat Clear Calc Estimated GFR Random Glucose Calcium Magnesium Total Bilirubin Direct Bilirubin AST ALT Alkaline Phosphatase Total Protein Albumin Lipase Beta HCG, Quant < 2 Urine Color YELLOW Urine Appearance CLEAR Urine pH 8.0 Ur Specific [place] 1.020 Urine Protein TRACE Urine Glucose (UA) NEG Urine Ketones NEG Urine Blood TRACE Urine Nitrite NEG Ur Leukocyte Esterase NEG Urine RBC 1-4 Urine WBC 0 Ur Squamous Epith Cells TRACE Urine Bacteria NONE Urine Mucus TRACE COVID-19 (ESVIN) Negative COVID-[employer] [place] Com See Note 09/26/20 09/26/20 06:41 06:41 WBC 7.2 RBC 3.34 L D Hgb 10.3 L D Hct 31.5 L MCV 94.3 MCH 30.8 MCHC 32.7 RDW 12.5 Plt Count 227 D MPV 10.7 Immature Gran % (Auto) 0.3 Neut % (Auto) 64.2 Lymph % (Auto) 24.3 [place] % (Auto) 9.3 Eos % (Auto) 1.5 Baso % (Auto) 0.4 Lymph # (Auto) 1.8 [place] # (Auto) 0.7 Eos # (Auto) 0.1 Baso # (Auto) 0.0 Abs Immat Gran (auto) 0.02 Absolute Neuts (auto) 4.6 Absolute Nucleated RBC 0.000 Nucleated RBC % (auto) 0.0 Smear Tech's Comments PT INR Sodium 137 Potassium 3.7 Chloride 104 Carbon Dioxide 26 Anion Gap 11 L BUN 9 Creatinine 0.82 Estim Creat Clear Calc 111.2 Estimated GFR > 60 Random Glucose 105 Calcium 7.5 L D Magnesium Total Bilirubin Direct Bilirubin AST ALT Alkaline Phosphatase Total Protein Albumin Lipase Beta HCG, Quant Urine Color Urine Appearance Urine pH Ur Specific [place] Urine Protein Urine Glucose (UA) Urine Ketones Urine Blood Urine Nitrite Ur Leukocyte Esterase Urine RBC Urine WBC Ur Squamous Epith Cells Urine Bacteria Urine Mucus COVID-19 (ESVIN) COVID-19 Clin Com
[2020-09-26] MEDS: Morphine Sulfate 4 MG/ML CARTRIDGE 2 MG IVPUSH (13:20)
[2020-09-26] MEDS: ondansetron HCL 4 MG/2 ML VIAL IVPUSH ×2 (13:20→21:21)
[2020-09-26 15:30] VITALS: BP 135/68; PULSE 60; RESP 20; TEMP 36.6; O2SAT 98
[2020-09-26] MEDS: Aspirin Enteric Coated 325 MG TABLET.DR 650 MG PO (17:17)
[2020-09-27] VITALS: BP 99/60; PULSE 67; RESP 16; TEMP 37.1; O2SAT 99
--- NOTE | 2020-09-27 | CT_ITS ---
EXAMINATION: CT ABDOMEN AND PELVIS WITH CONTRAST CLINICAL INFORMATION: Follow-up acute appendicitis COMPARISON: Previous CT scan 09/25/2020 TECHNIQUE: Multidetector volumetric images were obtained from the superior aspect of the liver through the pubic symphysis following administration 85 mL of Omnipaque 350 intravenous contrast. Sagittal and coronal reformatted images were obtained on the technologist's workstation. Oral contrast: Yes This CT examination was performed using dose optimization techniques as appropriate, variously including the following: *Automated exposure control *Adjustment of mA and/or kV according to patient size (this includes techniques or standardized protocols for targeted exams where dose is matched to indication/reason for exam; i.e. extremities or head) *Use of iterative reconstruction technique DLP: 703 mGy-cm FINDINGS: LUNG BASES: There is a small right pleural effusion. This is new from previous exam. The lung bases are otherwise clear. LIVER, GALLBLADDER, AND BILIARY TREE: The liver is normal in size, shape, and attenuation. No focal hepatic lesion or biliary ductal dilatation is present. The gallbladder is distended measuring 10 x 4.2 x 5.5 cm in sagittal AP and transverse dimension. No gallstones are appreciated. There is question of gallbladder wall thickening/edema versus pericholecystic fluid.. These findings are new or increased from 09/25/2020 exam. PANCREAS: Unremarkable. SPLEEN: Unremarkable. ADRENAL GLANDS: Unremarkable. KIDNEYS AND URETERS: The kidneys are normal in size, shape, and attenuation. There is new fullness of the the collecting systems/mild hydronephrosis, left greater than right. No stone is seen. BLADDER: Unremarkable. GASTROINTESTINAL TRACT: The small and large bowel are unremarkable. The tip of the appendix is slightly dilated measuring 10 mm in diameter. There is fluid seen in the tip of the appendix. There is question of strain is trace stranding of the periappendiceal fat. There is no periappendiceal fluid collection. The base of the appendix is upper normal in size measuring 8 mm. This appearance is similar to 09/25/2000 CT scan. There may be a small esophageal hernia. The stomach is otherwise and ABDOMINAL WALL: There is a small umbilical hernia containing fat. LYMPH NODES: Normal. VASCULAR: Unremarkable. PELVIC VISCERA: The uterus and adnexa are unremarkable. There is a small amount of ascites in the pelvis. This is increased from previous exam. OSSEOUS STRUCTURES: Unremarkable. CT/CT abdomen pelvis w con IMPRESSION: Slightly dilated fluid-filled tip of the appendix with question of minimal periappendiceal fat stranding. Findings are similar to recent exam and again questionable for appendicitis. Dilated gallbladder with question of gallbladder wall thickening/edema versus of pericholecystic fluid. No gallstones are seen by CT scan. These findings are new or increased from previous exam. If there is clinical suspicion of acute cholecystitis, HIDA scan would be recommended. Alternatively, nuclear medicine tagged white cell scan could be considered to evaluate both gallbladder and appendix findings. Increasing small amount of ascites in the pelvis. New small right pleural effusion. New fullness of the collecting systems/mild hydronephrosis, left greater than right.
[2020-09-27] MEDS: Dextrose 5 % and Lactated Ring 1,000 ML 125 ML IVCONT ×2 (00:19→07:46)
[2020-09-27] MEDS: Piperacillin Sodium/Tazobactam 3.375 GM in 0.9 % Sodium Chloride 50 ML IV ×2 (03:07→09:27)
[2020-09-27 06:32] LABS: MANUAL DIFF FLAG NO
[2020-09-27 06:47] LABS: Basophils Percent Auto 0.8 % (0-2); Eosinophils Absolute Auto 0.3 X10*3/uL (0.0-0.4); Eosinophils Percent Auto 5.9 % (0-4); Hematocrit 30.8 % (37-47); Hemoglobin 10.3 g/dl (12.0-16.0); Imm Gran Abs Auto 0.01 X10*3/uL (0.00-0.03); Imm Gran Pct Auto 0.2 % (0.0-0.4); Lymphocytes Absolute Auto 2.1 X10*3/uL (1.2-4.9); Lymphocytes Percent Auto 42.9 % (20-40); Mean Corpuscular HGB Conc 33.4 g/dl (31.0-35.0); Mean Corpuscular Hemoglobin 31.3 pg (27.0-33.0); Mean Corpuscular Volume 93.6 fL (80-98); Mean Platelet Volume 11.4 fL (9.4-12.3); Monocytes Absolute Auto 0.5 X10*3/uL (0.1-1.2); Monocytes Percent Auto 10.2 % (2-11); Platelet Count 240 X10*3/uL (160-400); Red Blood Count 3.29 X10*6/uL (4.20-5.50); Red Cell Distribution Width 12.3 % (11.0-16.0); White Blood Count 4.9 X10*3/uL (4.8-10.8)
[2020-09-27] MEDS: 0.9 % Sodium Chloride Flush 3 ML SYRINGE IVFLUSH (07:48)
[2020-09-27 07:52] VITALS: BP 112/60; PULSE 61; RESP 20; TEMP 36.9; O2SAT 97
--- NOTE | 2020-09-27 08:28 | PM.PNGS ---
Subjective Subjective Date of Service: 09/27/20 <Mirian Hudson PA-C - Last Filed: 09/27/20 08:33> 09/27/20 <Sincere Santiago MD - Last Filed: 09/27/20 11:02> Interval history: Feels much better this morning. Pain is improved but still having mild lower abdominal/epigastric pain. Had nausea yesterday but resolved. Wants to eat and go home. <Mirian Hudson PA-C - Last Filed: 09/27/20 08:33> Physical Exam Vital Signs: Vital Signs: Last Vital Signs Temp 98.5 F 09/27/20 07:52 Pulse 61 09/27/20 07:52 Resp 20 09/27/20 07:52 BP 112/60 09/27/20 07:52 Pulse Ox 97 09/27/20 07:52 Body Mass Index 31.0 <Mirian Hudson PA-C - Last Filed: 09/27/20 08:33> Const: General: healthy appearing, comfortable, no acute distress and alert <Mirian Hudson PA-C - Last Filed: 09/27/20 08:33> Orientation/consciousness: patient oriented x3 <Mirain Hudson PA-C - Last Filed: 09/27/20 08:33> Eyes: Sclerae: sclerae normal <Mirian Hudson PA-C - Last Filed: 09/27/20 08:33> Resp: Effort & Inspection: normal respiratory effort <Mirian Hudson PA-C - Last Filed: 09/27/20 08:33> Cardio: Rate: regular rate <Mirian Hudson PA-C - Last Filed: 09/27/20 08:33> GI: Inspection: Yes normal to inspection and No distended <JOHN Monroy Last Filed: 09/27/20 08:33> Palpation (GI): Soft to palpation, Tenderness to palpation present (GI) in the epigastrum (mild) and in the RLQ; with no rebound tenderness and Rovsing's sign negative, no guarding and not rigid <Mirian Hudson PA-C - Last Filed: 09/27/20 08:33> Auscultation: normal bowel sounds <Mirian JarquinJOHN bonilla - Last Filed: 09/27/20 08:33> Skin: General skin exam: no rashes or lesions noted <Mirian AlbaJOHN dunbar - Last Filed: 09/27/20 08:33> Neuro: General: patient oriented x3 <Mirian JarquinVALENTIN bonillaNayely Montes Last Filed: 09/27/20 08:33> Extrem: General: Yes no clubbing, cyanosis or edema <Mirian AlbaDAE dunbarKristina - Last Filed: 09/27/20 08:33> Progress Note: A&P Assessment and plan (1) Acute appendicitis: Status: Acute <Mirian JarquinVALENTIN bonillaNayely - Last Filed: 09/27/20 08:33> Assessment and Plan: Remains overall improved but continues to have mild RLQ pain. WBC remains normal. VSS. Abd with moderate RLQ/mild epigastric tenderness. Will obtain f/u CT scan of abd/pelvis. If improved will advance diet and transition to PO antibiotics in anticipation for discharge. Patient understands and agrees with the plan. <Mirian AlbaDAE dunbarKristina - Last Filed: 09/27/20 08:33> Patient feels improved this morning with decreased abdominal pain and no further nausea. Tolerated her liquid diet without increased pain. Will recheck CT of the abdomen and pelvis this morning and if improved will discharge to home. If increased inflammation, may require Lap appendectomy. <Sincere Santiago MD - Last Filed: 09/27/20 11:02> Fall Risk Details Current Medications: Current Medications Generic Name Dose Route Start Last Admin Trade Name Freq PRN Reason Stop Dose Admin Acetaminophen 650 mg 09/25/20 17:13 09/26/20 22:49 Acetaminophen 325 Mg Tablet PO 650 mg Q6H PRN Administration Pain, Mild (Pain Scale 1-3) Al Hydroxide/Mg Hydroxide 30 ml 09/25/20 17:13 Magnesium Hydrox/Alum Hydrox 30 Ml Oral.Susp PO Q4H PRN Heartburn/Nausea Aspirin 650 mg 09/26/20 14:52 09/26/20 17:17 Aspirin Enteric Coated 325 Mg Tablet.Dr PO 650 mg Q4H PRN Administration Headache Piperacillin Sod/Tazobactam 50 mls @ 100 mls/hr 09/25/20 21:00 09/27/20 03:45 Sod 3.375 gm/ Sodium Chloride IV Infused Q6H MASHA Infusion Dextrose/Lactated Ringer's 1,000 mls @ 150 mls/hr 09/25/20 17:13 09/27/20 07:46 D5lr IVCONT 125 mls/hr .Q6H40M MASHA Administration Promethazine HCl 6.25 mg/ 50.25 mls @ 201 mls/hr 09/26/20 14:51 Sodium Chloride IV Q4H PRN Nausea Magnesium Hydroxide 30 ml 09/25/20 17:13 Milk Of Magnesia 30 Ml Oral.Susp PO DAILY PRN Constipation Morphine Sulfate 2 mg 09/25/20 17:13 09/26/20 13:20 Morphine Sulfate 4 Mg/Ml Cartridge IVPUSH 2 mg Q2H PRN Administration Pain, Severe (Pain Scale 7-10) Ondansetron HCl 4 mg 09/25/20 17:13 09/26/20 21:21 Ondansetron Hcl 4 Mg/2 Ml Vial IVPUSH 4 mg Q8H PRN Administration Nausea and Vomiting Oxycodone HCl 5 mg 09/25/20 17:13 09/26/20 20:03 Oxycodone Hcl Immed Release 5 Mg Tablet PO 5 mg Q6H PRN Administration Pain, Moderate (Pain Scale 4-6 Pharmacy Consult 1 each 09/25/20 11:45 Consult Rx Perform Med Rec MISCELLANE ONCE PRN Consult order Sodium Chloride 3 ml 09/25/20 17:13 09/27/20 07:48 0.9 % Sodium Chloride Flush 3 Ml Syringe IVFLUSH 3 ml QSHIFT MASHA Administration Valacyclovir HCl 500 mg 09/26/20 13:30 09/26/20 14:00 Valacycyclovir Hcl 500 Mg Tablet PO 500 mg DAILY MASHA Administration Zolpidem Tartrate 5 mg 09/25/20 17:13 Zolpidem Tartrate 5 Mg Tablet PO BEDTIME PRN Insomnia <Mirian Hudson PA-C - Last Filed: 09/27/20 08:33> Time Spent With Patient Time: Total time spent is greater than 50% in coordination of care (as documented) at patient's floor/unit and/or counseling patient: <Mirian Hudson PA-C - Last Filed: 09/27/20 08:33> Time with patient: less than 15 minutes <Mirian Hudson PA-C - Last Filed: 09/27/20 08:33>
[2020-09-27] MEDS: Acetaminophen 325 MG TABLET 650 MG PO (10:09)
[2020-09-27] MEDS: iohexoL 350 MG/ML 100 ML INFUS..BTL IV (11:12)
[2020-09-27 11:36] VITALS: BP 114/74; PULSE 54; RESP 18; TEMP 37.2; O2SAT 99
--- NOTE | 2020-09-27 14:53 | MHC.CM.PN ---
PT BEING DISCHARGED HOME TODAY WITH NO SERVICES. PT WILL SELF ARRANGE TRANSPORT
--- NOTE | 2020-09-28 12:20 | PM.DS ---
DS: Providers Provider Date of admission: 09/25/20 15:08 Primary care physician: Unknown Physician DS: Diagnosis Discharge Diagnosis (1) Acute appendicitis: Status: Acute DS: Medications Discharge Medications Home Medications: Home Medications Medication Instructions Recorded Confirmed valacyclovir 500 mg PO DAILY 09/25/20 09/25/20 Previous Rx's Medication Instructions Recorded amoxicillin-pot clavulanate 1 tab PO BID #22 tab 09/27/20 [Augmentin] DS: Summary Hospital Course Hospital Course: BRIEF HPI: Wendie Armstrong is a 34 year old female presenting with complaints of epigastric abdominal pain. Patient reports the onset of pain soon after eating and felt she may have had food poisoning. The pain was associated with nausea and vomiting. She also reports complaints of fever and chills. She denies any other sick contacts. She denies diarrhea or constipation, bloody stools or other abdominal symptoms. She subsequently presented to the emergency department and was found to be tender in the epigastrium and lower abdomen. A CT of the abdomen and pelvis revealed a distended gallbladder with possible enlarged common bile duct. No stones were identified on CT scan. Also identified was a dilated appendix with some inflammatory changes surrounding suggestive of an early appendicitis. [place] [address]. no evidence of perforation or abscess was identified. An ultrasound of the abdomen was also obtained and revealed no gallstones within the gallbladder or common bile duct. Findings were suggestive of acute appendicitis and she was admitted to the surgical service and started on IV antibiotics. She was kept NPO with plan to reassess symptoms and if they do not improve with conservative measures she may require a laparoscopic appendectomy. HOSPITAL COURSE: The patient's symptoms improved daily- her pain was better and then resolved. Her WBC count normalized. Her vitals remained stable and she was afebrile. She did have some mild right lower quadrant tenderness and therefore a CT scan was repeated as follow up which did not show worsening of the inflammation. She was therefore advanced to a solid diet and reassessed later that day. She was tolerating the solid diet, felt well without any abdominal pain, nausea or vomiting and fevers. She felt ready for discharge. She was discharged to home on 09/27/20 in stable condition. She was discharged on a course of PO Augmentin with plan to follow up with Dr. Santiago in office. She was educated on signs/symptoms that warrant return. Status at Discharge Functional status at discharge: independent ambulation Overall status at discharge: patient is back to baseline Time Spent with Patient Time attestation: Total time spent providing and/or coordinating discharge services: Discharge coordination time: Less than 30 minutes Physical Exam Vital Signs: Vital Signs: Last Vital Signs Temp 98.9 F 09/27/20 11:36 Pulse 54 09/27/20 11:36 Resp 18 09/27/20 11:36 BP 114/74 09/27/20 11:36 Pulse Ox 99 09/27/20 11:36 Body Mass Index 31.0 Const: General: healthy appearing, comfortable, no acute distress and alert Orientation/consciousness: patient oriented x3 Eyes: Sclerae: sclerae normal Resp: Effort & Inspection: normal respiratory effort Cardio: Rate: regular rate GI: Inspection: Yes normal to inspection and No distended Palpation (GI): Soft to palpation, Tenderness to palpation present (GI) (very mild RLQ tenderness to deep palpation), no guarding, not rigid and No Rebound tenderness present Skin: General skin exam: no rashes or lesions noted Neuro: General: patient oriented x3 Extrem: General: Yes no clubbing, cyanosis or edema DS: Data Data Completed and Pending Labs on day of discharge: 09/25/20 09:55 0.9 % Sodium Chloride [Ns] 1,000 ml IVCONT 999 mls/hr 09/25/20 09:56 Morphine Sulfate 2 mg IVPUSH ONCE ONE ondansetron HCL [Zofran] 4 mg IVPUSH ONCE ONE 09/25/20 09:57 US abdomen complete Stat 09/25/20 10:04 Basic Metabolic Panel Stat Complete Blood Count Auto Diff Stat HCG Quantitative Stat Lipase Stat Liver Panel Stat Magnesium Stat Prothrombin Time INR Stat SLIDE REVIEW Stat 09/25/20 10:42 COVID-19 ID NOW (Santos) Stat 09/25/20 11:43 CT abdomen pelvis wo con Stat 09/25/20 11:45 Consult Rx Perform Med Rec 1 each MISCELLANE ONCE PRN 09/25/20 12:17 Morphine Sulfate 2 mg IVPUSH ONCE ONE 09/25/20 14:11 Piperacillin Sodium/Tazobactam [Zosyn] 3.375 gm 0.9 % Sodium Chloride [Ns] 50 ml IV ONCE 09/25/20 14:36 Metoclopramide HCl [Reglan] 10 mg IVPUSH ONCE ONE Morphine Sulfate 2 mg IVPUSH ONCE ONE 09/25/20 14:59 Piperacillin Sodium/Tazobactam [Zosyn] 3.375 gm IV .STK-MED ONE 09/25/20 15:00 Transfer Order Routine 09/25/20 15:01 Code Status Routine 09/25/20 17:13 0.9 % Sodium Chloride Flush [NS Flush] 3 ml IVFLUSH QSHIFT Acetaminophen [Tylenol] 650 mg PO Q6H PRN Dextrose 5 % and Lactated Ring [D5lr] 1,000 ml IVCONT 150 mls/hr Magnesium Hydrox/Alum Hydrox [Maalox] 30 ml PO Q4H PRN Milk of Magnesia [Mom] 30 ml PO DAILY PRN Morphine Sulfate 2 mg IVPUSH Q2H PRN Zolpidem Tartrate [Ambien] 5 mg PO BEDTIME PRN ondansetron HCL [Zofran] 4 mg IVPUSH Q8H PRN oxyCODONE HCl Immed Release [Roxicodone] 5 mg PO Q6H PRN 09/25/20 17:13 Ambulate QSHIFT WHILE AWAKE Compression Therapy QSHIFT IV insert/maintain Q4HR Intake and Output QSHIFTE Vital Signs QSHIFT 09/25/20 17:47 RT Smoking Initial Cessation ONCE 09/25/20 Dinner NPO Diet 09/25/20 20:46 Piperacillin Sodium/Tazobactam [Zosyn] 3.375 gm IV .STK-MED ONE 09/25/20 20:48 Piperacillin Sodium/Tazobactam [Zosyn] 3.375 gm IV .STK-MED ONE 09/25/20 21:00 Piperacillin Sodium/Tazobactam [Zosyn] 3.375 gm 0.9 % Sodium Chloride [Ns] 50 ml IV Q6H 09/26/20 02:47 Piperacillin Sodium/Tazobactam [Zosyn] 3.375 gm IV .STK-MED ONE 09/26/20 02:51 Piperacillin Sodium/Tazobactam [Zosyn] 3.375 gm IV .STK-MED ONE 09/26/20 05:15 0.9 % Sodium Chloride [Ns] 1,000 ml IVCONT 999 mls/hr 09/26/20 06:41 Basic Metabolic Panel DAILY@0600 Complete Blood Count Auto Diff DAILY@0600 09/26/20 08:06 Piperacillin Sodium/Tazobactam [Zosyn] 3.375 gm IV .STK-MED ONE 09/26/20 09:56 Insert/maintain urinary catheter NOW 09/26/20 13:30 valACYcyclovir HCL [Valtrex] 500 mg PO DAILY 09/26/20 13:56 Piperacillin Sodium/Tazobactam [Zosyn] 3.375 gm IV .STK-MED ONE 09/26/20 14:51 Promethazine HCL [Phenergan] 6.25 mg 0.9 % Sodium Chloride [Ns] 50 ml IV Q4H 09/26/20 14:52 Aspirin Enteric Coated [Ecotrin] 650 mg PO Q4H PRN 09/26/20 Lunch Clear Liquid Diet 09/26/20 21:02 Piperacillin Sodium/Tazobactam [Zosyn] 3.375 gm IV .STK-MED ONE 09/27/20 CT abdomen pelvis w con Routine 09/27/20 02:57 Piperacillin Sodium/Tazobactam [Zosyn] 3.375 gm IV .STK-MED ONE 09/27/20 05:56 Complete Blood Count Auto Diff DAILY@0600 09/27/20 09:00 valACYcyclovir HCL [Valtrex] 500 mg PO DAILY 09/27/20 09:21 Piperacillin Sodium/Tazobactam [Zosyn] 3.375 gm IV .STK-MED ONE 09/27/20 11:11 iohexoL 350 MG/ML [Omnipaque 350 MG/ML] 100 ml IV ONCE ONE Laboratory Last Values WBC 4.9 X10*3/uL (4.8-10.8) 09/27/20 05:56 RBC 3.29 X10*6/uL (4.20-5.50) L 09/27/20 05:56 Hgb 10.3 g/dl (12.0-16.0) L 09/27/20 05:56 Hct 30.8 % (37-47) L 09/27/20 05:56 MCV 93.6 fL (80-98) 09/27/20 05:56 MCH 31.3 pg (27.0-33.0) 09/27/20 05:56 MCHC 33.4 g/dl (31.0-35.0) 09/27/20 05:56 RDW 12.3 % (11.0-16.0) 09/27/20 05:56 Plt Count 240 X10*3/uL (160-400) 09/27/20 05:56 MPV 11.4 fL (9.4-12.3) 09/27/20 05:56 Immature Gran % (Auto) 0.2 % (0.0-0.4) 09/27/20 05:56 Neut % (Auto) 40.0 % (45-73) L 09/27/20 05:56 Lymph % (Auto) 42.9 % (20-40) H 09/27/20 05:56 [place] % (Auto) 10.2 % (2-11) 09/27/20 05:56 Eos % (Auto) 5.9 % (0-4) H 09/27/20 05:56 Baso % (Auto) 0.8 % (0-2) 09/27/20 05:56 Lymph # (Auto) 2.1 X10*3/uL (1.2-4.9) 09/27/20 05:56 [place] # (Auto) 0.5 X10*3/uL (0.1-1.2) 09/27/20 05:56 Eos # (Auto) 0.3 X10*3/uL (0.0-0.4) 09/27/20 05:56 Baso # (Auto) 0.0 X10*3/uL (0.0-0.2) 09/27/20 05:56 Abs Immat Gran (auto) 0.01 X10*3/uL (0.00-0.03) 09/27/20 05:56 Absolute Neuts (auto) 2.0 X10*3/uL (2.0-8.3) 09/27/20 05:56 Absolute Nucleated RBC 0.000 X10*3/uL (0.0-0.012) 09/27/20 05:56 Nucleated RBC % (auto) 0.0 /100WBC (0.0-0.2) 09/27/20 05:56 Smear Tech's Comments VERIFIED 09/25/20 10:04 PT 12.6 SEC (10.8-13.0) 09/25/20 10:04 INR 1.1 (0.9-1.1) 09/25/20 10:04 Sodium 137 mmol/L (135-145) 09/26/20 06:41 Potassium 3.7 mmol/l (3.3-5.1) 09/26/20 06:41 Chloride 104 mmol/L (96-108) 09/26/20 06:41 Carbon Dioxide 26 mmol/L (22-29) 09/26/20 06:41 Anion Gap 11 (12-20) L 09/26/20 06:41 BUN 9 mg/dL (9-16) 09/26/20 06:41 Creatinine 0.82 mg/dL (0.5-1.4) 09/26/20 06:41 Estim Creat Clear Calc 111.2 09/26/20 06:41 Estimated GFR > 60 09/26/20 06:41 Random Glucose 105 mg/dL (60-115) 09/26/20 06:41 Calcium 7.5 mg/dL (8.4-10.2) L D 09/26/20 06:41 Magnesium 1.8 mg/dL (1.6-2.6) 09/25/20 10:04 Total Bilirubin 0.5 mg/dL (0.0-1.0) 09/25/20 10:04 Direct Bilirubin 0.2 mg/dL (0.0-0.5) 09/25/20 10:04 AST 12 U/L (5-31) 09/25/20 10:04 ALT 13 U/L (0-31) 09/25/20 10:04 Alkaline Phosphatase 66 U/L (39-117) 09/25/20 10:04 Total Protein 7.3 g/dL (6.5-8.0) 09/25/20 10:04 Albumin 4.5 g/dL (3.5-5.0) 09/25/20 10:04 Lipase 13 U/L (8-78) 09/25/20 10:04 Beta HCG, Quant < 2 mIU/mL 09/25/20 10:04 Urine Color YELLOW 09/25/20 12:29 Urine Appearance CLEAR 09/25/20 12:29 Urine pH 8.0 (5.0-8.0) 09/25/20 12:29 Ur Specific [place] 1.020 (1.005-1.025) 09/25/20 12:29 Urine Protein TRACE MG/DL (NEG-TRACE) 09/25/20 12:29 Urine Glucose (UA) NEG MG/DL (NEG) 09/25/20 12:29 Urine Ketones NEG MG/DL (NEG) 09/25/20 12:29 Urine Blood TRACE (NEG) 09/25/20 12:29 Urine Nitrite NEG (NEG) 09/25/20 12:29 Ur Leukocyte Esterase NEG (NEG) 09/25/20 12:29 Urine RBC 1-4 /HPF (0) 09/25/20 12:29 Urine WBC 0 /HPF (0-4) 09/25/20 12:29 Ur Squamous Epith Cells TRACE /LPF 09/25/20 12:29 Urine Bacteria NONE /LPF 09/25/20 12:29 Urine Mucus TRACE /LPF 09/25/20 12:29 COVID-19 (ESVIN) Negative (Negative) 09/25/20 10:42 COVID-19 Clin Com See Note 09/25/20 10:42 Preliminary micro results at discharge 09/25/20 15:02 Blood Culture - Preliminary Blood - Venous No growth after 48 hours. 09/25/20 14:34 Blood Culture - Preliminary Blood - Venous No growth after 48 hours. Discharge Plan Discharge Patient Disposition: Home, Self-Care Referrals: Sincere Santiago MD [Physician] - 1 Week Physician,Unknown [Primary Care Provider] - Discharge Medications: New amoxicillin-pot clavulanate [Augmentin] 500-125 mg tablet 1 tab PO BID Qty: 22 RF: 0 Continued valacyclovir 500 mg PO DAILY RF: 0 Discharge Orders: Discharge Order (Routine); Ordered 09/27/20 Ordered By: Mirian Hudson Diet: advance to usual diet Activity on Discharge: As tolerated Stand Alone Forms: Work/School Release Discharge Date/Time: 09/27/20 15:35 Activity Restrictions/Additional Instructions: Return to activities as tolerated. Please call the office or return to the ED with worsening abdominal pain, nausea, vomiting or fevers. Visit Report Forms: Patient Portal Discharge page Care Plan Goals: Return to baseline health Health Concerns: Acute appendicitis Plan of Treatment: Nonoperative measures with IV abx and observation.
== END 2020-09-27 15:35 | disposition home or self-care (01) ==
LOC: HO.ED 15:03 → HO.IMC 09-26 13:43
PROVIDERS: Physician Assistant Medical; Admitting Provider Surgery; Emergency Provider Internal Medicine; Visit Provider Surgery
DX: K35.30 Acute appendicitis with localized peritonitis, without perforation or gangrene (principal); R11.2 Nausea with vomiting, unspecified; R19.7 Diarrhea, unspecified; K82.8 Other specified diseases of gallbladder; N13.30 Unspecified hydronephrosis; J90 Pleural effusion, not elsewhere classified; R18.8 Other ascites; F17.210 Nicotine dependence, cigarettes, uncomplicated; Z20.828 Contact with and (suspected) exposure to other viral communicable diseases; Z79.899 Other long term (current) drug therapy
CPT/HCPCS: 36415; 74176; 74177; 76700; 80048; 80076; 81001; 83690; 83735; 84702; 85025; 85610; 87040; 87635; 96361; 96365; 96375; 96376; 99219; 99285; 99291; J2270; J2405; J2543; J2765; Q9967

== ENCOUNTER → 2020-09-28 15:10 | Outpatient (BNVA) | payer MEDICAID, SELFPAY | PROVIDERS: PCP Nurse Practitioner Family; Visit Provider Surgery | DX: K35.30 Acute appendicitis with localized peritonitis, without perforation or gangrene (principal) | CPT/HCPCS: 99212 ==

== ENCOUNTER 2020-09-29 10:23 | Day surgery (SDC) | payer MEDICAID, SELFPAY ==
[2020-09-29] VITALS (8 sets, daily range): BP systolic 101–132; BP diastolic 52–89; PULSE 64–98; RESP 16–20; TEMP 36.4–36.5; O2SAT 96–100; BMI 31.0
[2020-09-29 10:58] LABS: UPreg QC Valid YES; Urine Pregnancy NEGATIVE (NEGATIVE)
[2020-09-29] MEDS: Lactated Ringers 1,000 ML 100 ML IVCONT (11:07)
[2020-09-29] MEDS: ondansetron HCL 4 MG/2 ML VIAL IVPUSH (11:08)
--- NOTE | 2020-09-29 11:56 | P.CONAN_ITS ---
REPLACED BY [facility] Past Medical History Medical History Depression Herpes Stomach ulcer Surgical History Surgical History Hx of breast reduction, elective Social History Social History Household Members: Children Housing: Apartment Alcohol intake: current Alcohol intake frequency: a few times a week Smoking Status: Current every day smoker Tobacco Type: Cigarette Cigarettes Per Day: 1 Years Smoked: 5 Second Hand Smoke Exposure: No Use of substances other than those prescribed or required for medical reasons: No Advance Directives: No Advance Directives Information Provided: No service: No Current occupational status: employed Meds Allergies Allergy/AdvReac Type Severity Reaction Status Date / Time No Known Allergies Allergy Verified 09/29/20 10:58 Home Medications Medication Instructions Recorded Confirmed Type valacyclovir 500 mg PO DAILY 09/25/20 09/29/20 History fluoxetine 40 mg capsule 40 mg PO DAILY 09/28/20 09/29/20 History Exam Exam Date and Time: September 29, 2020 1156 Height,Weight and Vital Signs: Height 5 ft 7 in Weight 89.811 kg Last Vital Signs Temp 97.6 F 09/29/20 10:46 Pulse 64 09/29/20 10:46 Resp 16 09/29/20 10:46 BP 117/77 09/29/20 10:46 Pulse Ox 99 09/29/20 10:46 Pertinent Lab Results Pertinent Lab Results: Laboratory Tests 09/29/20 10:40 Urine Test NEGATIVE Airway Mallampati Class: I TM Dist: >3cm Neck ROM: Full Loose/Missing/Broken Teeth: No Heart: RRR Lungs: CTA Assessment and Plan Assessment Anesthesia Assessment: Anesthesia Plan Discussed and Chart Reviewed Final Anesthetic Review NPO: Yes ASA Class: II Final Preanesthetic Review: Meds/Allgs Chart Reviewed, Consent Obtained/Reviewed and Anes Risks/Benef Reviewed Patient Risk: Low Procedure Risk: Low Anesthetic Plan Anesthetic Plan: GA Disposition: Standard PACU
--- NOTE | 2020-09-29 12:00 | MHC.SHP ---
Pre-Procedural Eval Section A The patient is an INPATIENT: No Changes since office visit: Yes Patient answered all questions; No Cold of Flu in the past 2 weeks, No New Medical Problems and No Changes in Medication The History & Physical has been completed within 30 days and I have reviewed it.: Yes Section B Chief Complaint: appendicitis Allergies: Allergies Allergy/AdvReac Type Severity Reaction Status Date / Time No Known Allergies Allergy Verified 09/29/20 10:58 Plan Diagnosis/Plan: Unchanged Patient has been examined and remains a candidate for the planned procedure
--- NOTE | 2020-09-29 12:01 | W.PM.OPN ---
Operative Note Operative Note Date of Service: 09/29/20 Narrative: Preoperative diagnosis: Acute appendicitis Postoperative diagnosis: Same Procedure: Laparoscopic appendectomy Surgeon: Sincere Santiago MD Patient Appointment Coordinator: AYALA Monroy Anesthesia: General endotracheal Indications for procedure:Persistent pain in the lower abdomen, thickened appendix on CT Operative findings: Enlarged but minimally inflammed appendix, no abscess, no intraabdominal fluid Specimen: appendix Estimated blood loss: 2 ml Complications: none Procedure details: Patient was brought to the OR and placed in a supine position. After administering general anesthesia the patient's abdomen was prepped with ChloraPrep and draped in a sterile fashion. A surgical time-out was called and consent confirmed. Patient received preoperative antibiotics and Venodyne boots were in place. Local anesthesia consisting of 0.75% Sensorcaine with epinephrine was infiltrated in periumbilical region. A 5 mm incision was made below the umbilicus and carried down through subcutaneous tissue. A Veress needle was then inserted while elevating abdominal cavity with towel clips. After a positive drop test the abdomen was insufflated to a pressure of 15 mm of mercury. The Veress needle was removed and a 5 mm trocar inserted. The camera was then inserted in the abdomen explored. A 2nd 5 mm trocars placed in the lower midline. A 12 mm trocar was then placed in the left lower quadrant. The patient was then placed in a Trendelenburg position and rotated to the left. The appendix was identified in the right lower quadrant and brought up using blunt dissecting clamps. The mesentery of the appendix was then divided using the LigaSure. The appendiceal artery was cauterized and divided using the LigaSure. Dissection was continued down to the base of the cecum. An Endo-AMBAR stapler with a purple reload was then used to divide the appendix at the base with the cecum. The appendix was then placed in Endo-Catch bag and brought out through the left lower quadrant incision. The abdomen was then irrigated with saline solution and suctioned dry. Wounds were checked for hemostasis. CO2 was then evacuated from the abdominal cavity and all trocars removed. Skin was closed at all incisions using a subcuticular 4-0 Polysorb suture. Steri-Strips 2 x 2 gauze and Tegaderm were then applied. The patient tolerated the procedure well. Sponge, instrument, needle counts reported as correct. The patient was transferred to PACU in stable condition.
--- NOTE | 2020-09-29 13:06 | P.BOP_ITS ---
Brief Operative Note Date of Service: 09/29/20 Pre-op diagnosis: Acute appendicitis Post-op diagnosis: same Procedure: Laparoscopic appendectomy Implants: none Surgeon: Sincere Santiago MD Anesthesia: AIDAN Supervisor Phosphorus Processing: Mirian Hudson Estimated blood loss (mL): 2 Pathology: other (appendix) Condition: stable Disposition: PACU
== END 2020-09-29 14:50 ==
LOC: HO.SSS 10:24
PROVIDERS: Anesthesiology; PCP Surgery; Visit Provider Surgery
PROC: 0DTJ4ZZ Resection of Appendix, Percutaneous Endoscopic Approach (ICD-10-PCS; CPT 44970; principal; 2020-09-29 12:20)
DX: K35.30 Acute appendicitis with localized peritonitis, without perforation or gangrene (principal); F32.9 Major depressive disorder, single episode, unspecified; F17.210 Nicotine dependence, cigarettes, uncomplicated; Z79.899 Other long term (current) drug therapy
CPT/HCPCS: 44970; 81025; 88304; J1100; J1170; J2250; J2405; J2765; J3010

== ENCOUNTER → 2020-10-08 10:21 | Outpatient (BNVA) | payer MEDICAID, SELFPAY | PROVIDERS: PCP Nurse Practitioner Family; Visit Provider Surgery | DX: K35.30 Acute appendicitis with localized peritonitis, without perforation or gangrene (principal) | CPT/HCPCS: 99212 ==

== ENCOUNTER 2022-07-13 17:29 | Emergency (ER) | payer OTHER, MEDICAID, SELFPAY ==
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
[2022-07-13 17:37] VITALS: BP 118/73; PULSE 72; RESP 16; TEMP 36.3; O2SAT 97; BMI 36.0
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
== END 2022-07-13 19:59 | disposition home or self-care (01) ==
PROVIDERS: Emergency Provider Emergency Medicine; PCP Nurse Practitioner Family
DX: S13.4XXA Sprain of ligaments of cervical spine, initial encounter (principal); S39.012A Strain of muscle, fascia and tendon of lower back, initial encounter; M54.2 Cervicalgia; V43.52XA Car driver injured in collision with other type car in traffic accident, initial encounter; Y93.9 Activity, unspecified; Y92.410 Unspecified street and highway as the place of occurrence of the external cause; Y99.9 Unspecified external cause status
CPT/HCPCS: 72040; 72100; 99282; 99283

== ENCOUNTER 2024-04-25 23:31 | Emergency (ER) | payer OTHER, SELFPAY ==
[2024-04-25 23:33] VITALS: BP 124/73; PULSE 65; RESP 16; TEMP 36.8; O2SAT 100; BMI 29.8
--- NOTE | 2024-04-25 23:50 | MHC.EDTECH ---
is pct just assumed care of patient blood drawn and sent to lab.
[2024-04-25 23:53] LABS: MANUAL DIFF FLAG NO
[2024-04-25 23:54] LABS: Basophils Absolute Auto 0.1 X10*3/uL (0.0-0.2); Basophils Percent Auto 0.7 % (0-2); Eosinophils Absolute Auto 0.3 X10*3/uL (0.0-0.4); Eosinophils Percent Auto 3.4 % (0-4); Hemoglobin 12.7 g/dl (12.0-16.0); Imm Gran Abs Auto 0.02 X10*3/uL (0.00-0.03); Imm Gran Pct Auto 0.2 % (0.0-0.4); Lymphocytes Absolute Auto 2.5 X10*3/uL (1.2-4.9); Lymphocytes Percent Auto 31.1 % (20-40); Mean Corpuscular HGB Conc 35.3 g/dl (31.0-35.0); Mean Corpuscular Hemoglobin 32.6 pg (27.0-33.0); Mean Corpuscular Volume 92.3 fL (80.0-98.0); Mean Platelet Volume 10.5 fL (9.4-12.3); Monocytes Percent Auto 11.6 % (2-11); Neutrophils Absolute Auto 4.3 x10*3/uL (2.0-8.3); Platelet Count 333 X10*3/uL (160-400); Red Cell Distribution Width 12.6 % (11.0-16.0); White Blood Count 8.2 X10*3/uL (4.8-10.8)
--- NOTE | 2024-04-25 23:57 | ED_ITS ---
HPI - Abdominal Pain General Chief Complaint: Abdominal Pain Stated Complaint: Abd pain, coffee ground emesis, nausea Time Seen by Provider: 04/25/24 23:57 Source: patient Mode of arrival: ambulatory Limitations: no limitations History of Present Illness ED Provider: sherry LOPES narrative: Patient has been upper gastric pain last few days also having lower abdominal cramps no melena has nausea sometimes vomiting today she vomited small amount of coffee: No history of ulcer no gallstones in the past no fever no chills no urinary symptoms eating normally Related Data Home Medications ?Medication ?Instructions ?Recorded ?Confirmed valacyclovir 500 mg PO DAILY 09/25/20 09/29/20 fluoxetine 40 mg capsule 40 mg PO DAILY 09/28/20 09/29/20 Previous Rx's ?Medication ?Instructions ?Recorded cyclobenzaprine 10 mg tablet 10 mg PO BEDTIME PRN pain #14 tabs 07/13/22 dicyclomine 20 mg tablet 20 mg PO TID PRN Abdominal 04/26/24 Discomfort #20 tabs pantoprazole 40 mg tablet,delayed 40 mg PO DAILY #30 tabs 04/26/24 release (Protonix) Allergies Allergy/AdvReac Type Severity Reaction Status Date / Time No Known Allergies Allergy Verified 04/25/24 23:34 Review of Systems Review of Systems Yes all other systems are reviewed and are negative PMFSH Past Medical History Medical History Depression Stomach ulcer Herpes Surgical History S/P laparoscopic appendectomy Hx of breast reduction, elective Social History Social History Household Members: Children Housing: Apartment Do you presently have visiting nurse or other home services: No Alcohol intake: current Alcohol intake frequency: a few times a week Alcohol type: beer, wine and hard liquor Comment: sleeping Cigarettes Per Day: 1 Years Smoked: 5 Smoked in Last 30 Days: Yes Second Hand Smoke Exposure: No Use of substances other than those prescribed or required for medical reasons: Yes Substance Use Type: Marijuana Advance Directives: No Advance Directives Information Provided: Yes Do you have a plan to hurt others: No Plan Patient : No service: No Current occupational status: employed Physical Exam ED Vital Signs: Vital Signs - 24 hr 04/25/24 23:33 Temperature 98.3 F Pulse Rate 65 Respiratory Rate 16 Blood Pressure 124/73 Pulse Oximetry 100 Oxygen Delivery Method Room Air BMI result Body Mass Index 29.8 Appearance: Alert. Oriented X3. No acute distress. Eyes: No pallor or icterus ENT: Pharynx normal. Oral Mucosa moist Neck: Normal inspection. Neck supple. CVS: Normal heart rate and rhythm. Pulses normal. Respiratory: No respiratory distress. Equal air entry bilateral, no wheezing/rales/rhonchi Abdomen: Soft and mild pelvic discomfort. Bowel sounds are present, no mass palpable, no CVA tenderness Skin: Skin warm and dry. Normal skin color. Normal skin turgor. Extremities: No lower extremity edema. No calf tenderness Neuro: Oriented X 3. No motor deficit. Medical Decision Making Medical Decision Making [facility] Narrative: Patient with nonspecific abdominal discomfort for long duration with history of alcohol use to 3 times a week likely alcoholic gastritis will discharge patient home on H2 kely and dicyclomine patient has previous CT scan and ultrasound negative for gallstones Differential Diagnosis Differential Diagnoses: The differential diagnosis associated with the presentation includes Gastritis/cholelithiasis/cholecystitis/fatty liver/IBS Lab Data [facility] Lab Attestation statement: I reviewed the patient's lab results. 04/25/24 23:48 04/25/24 23:48 Labs: Lab Results 04/25/24 04/26/24 Range/Units 23:48 00:21 WBC 8.2 (4.8-10.8) X10*3/uL RBC 3.90 L (4.20-5.50) X10*6/uL Hgb 12.7 (12.0-16.0) g/dl Hct 36.0 L (37.0-47.0) % MCV 92.3 (80.0-98.0) fL MCH 32.6 (27.0-33.0) pg MCHC 35.3 H (31.0-35.0) g/dl RDW 12.6 (11.0-16.0) % Plt Count 333 (160-400) X10*3/uL MPV 10.5 (9.4-12.3) fL Immature Gran % (Auto) 0.2 (0.0-0.4) % Neut % (Auto) 53.0 (45-73) % Lymph % (Auto) 31.1 (20-40) % [place] % (Auto) 11.6 H (2-11) % Eos % (Auto) 3.4 (0-4) % Baso % (Auto) 0.7 (0-2) % Lymph # (Auto) 2.5 (1.2-4.9) X10*3/uL [place] # (Auto) 1.0 (0.1-1.2) X10*3/uL Eos # (Auto) 0.3 (0.0-0.4) X10*3/uL Baso # (Auto) 0.1 (0.0-0.2) X10*3/uL Abs Immat Gran (auto) 0.02 (0.00-0.03) X10*3/uL Absolute Neuts (auto) 4.3 (2.0-8.3) x10*3/uL Absolute Nucleated RBC 0.000 (0.0-0.012) X10*3/uL Nucleated RBC % (auto) 0.0 (0.0-0.2) /100WBC Sodium 140 (135-145) mmol/L Potassium 3.4 (3.3-5.1) mmol/L Chloride 106 (96-108) mmol/L Carbon Dioxide 26 (22-29) mmol/L Anion Gap 11 L (12-20) BUN 9 (9-16) mg/dL Creatinine 0.95 (0.5-1.4) mg/dL Estim Creat Clear Calc 90.5 Estimated GFR > 60 Random Glucose 84 (60-115) mg/dL Calcium 9.3 D (8.4-10.2) mg/dL Total Bilirubin 0.3 (0.0-1.0) mg/dL Direct Bilirubin 0.1 (0.0-0.5) mg/dL AST 13 (5-31) U/L ALT 13 (0-31) U/L Alkaline Phosphatase 61 (39-117) U/L Total Protein 6.8 (6.5-8.0) g/dL Albumin 4.0 (3.5-5.0) g/dL Lipase 30 (8-78) U/L Urine Color Yellow Urine Appearance Clear Urine pH 6.0 (5.0-9.0) Ur Specific [place] 1.025 (1.005-1.025) Urine Protein Trace (Neg-Trace) mg/dL Urine Glucose (UA) Negative (Negative) mg/dL Urine Ketones Trace (Negative) mg/dL Urine Blood Trace H (Negative) Urine Nitrite Negative (Negative) Ur Leukocyte Esterase Negative (Negative) Urine RBC 3-5 H (0-2) /HPF Urine WBC 0-5 (0-5) /HPF Ur Squamous Epith Cells 6-10 (0-2) /HPF Urine Bacteria 1+ (None Seen) Hyaline Casts 0-2 (0-2) /LPF Urine Test NEGATIVE (NEGATIVE) Medications Administered Discontinued Medications Generic Name Dose Route Start Last Admin Trade Name Freq PRN Reason Stop Dose Admin Famotidine 20 mg 04/26/24 00:06 04/26/24 00:17 Famotidine/Pf 20 Mg/2 Ml Vial IVPUSH 04/26/24 00:07 20 mg ONCE ONE Administration Sodium Chloride 1,000 mls @ 999 mls/hr 04/25/24 23:45 04/26/24 01:16 Ns IV 04/26/24 00:45 Infused .Q1H1M MASHA Infusion Ondansetron HCl 4 mg 04/26/24 00:06 04/26/24 00:17 Ondansetron Hcl 4 Mg/2 Ml Vial IVPUSH 04/26/24 00:07 4 mg ONCE ONE Administration Discharge Plan Discharge Clinical Impression: Acute gastritis Patient Disposition: Home, Self-Care Instructions: Gastritis (ED) Additional Instructions: Drink plenty of fluids Avoid alcohol Medication for gastritis and abdominal spasm as prescribed Follow with your PCP if not better Prescriptions: New pantoprazole [Protonix] 40 mg tablet,delayed release (DR/EC) 40 mg PO DAILY Qty: 30 0RF dicyclomine 20 mg tablet 20 mg PO TID PRN (Reason: Abdominal Discomfort) Qty: 20 0RF No Action valacyclovir 500 mg PO DAILY cyclobenzaprine 10 mg tablet 10 mg PO BEDTIME PRN (Reason: pain) Qty: 14 0RF fluoxetine 40 mg capsule 40 mg PO DAILY Print Language: Sammarinese
[2024-04-26 00:08] LABS: Alanine Aminotransferase 13 U/L (0-31); Alkaline Phosphatase 61 U/L (39-117); Anion Gap 11 (12-20); Aspartate Amino Transferase 13 U/L (5-31); Bilirubin Direct 0.1 mg/dL (0.0-0.5); Bilirubin Total 0.3 mg/dL (0.0-1.0); Blood Urea Nitrogen 9 mg/dL (9-16); Calcium 9.3 mg/dL (8.4-10.2); Carbon Dioxide 26 mmol/L (22-29); Chloride 106 mmol/L (96-108); Creatinine Clr Calc Pharmacy 90.5; Estimated Glomerular Filt Rate > 60; Glucose Random 84 mg/dL (60-115); Lipase 30 U/L (8-78); Potassium 3.4 mmol/L (3.3-5.1); Sodium 140 mmol/L (135-145); Total Protein 6.8 g/dL (6.5-8.0)
[2024-04-26] MEDS: Famotidine/PF 20 MG/2 ML VIAL IVPUSH (00:17)
[2024-04-26] MEDS: ondansetron HCL 4 MG/2 ML VIAL IVPUSH (00:17)
[2024-04-26] MEDS: 0.9 % Sodium Chloride 1,000 ML 999 ML IV (00:17)
--- NOTE | 2024-04-26 00:23 | MHC.EDTECH ---
patient urine sample collected and sent to lab .
[2024-04-26 00:27] LABS: Appearance Urine Clear; Color Urine Yellow; Glucose Urine UA Negative (Negative); Leukocyte Esterase Urine Negative (Negative); Nitrite Urine Negative (Negative); Specific Gravity - Urine 1.025 (1.005-1.025); UMIC TRIGGER UACC YES; Urine Blood Trace (Negative); Urine Ketones Trace mg/dL (Negative); Urine Protein Trace mg/dL (Neg-Trace)
[2024-04-26 00:29] LABS: Bacteria Urine 1+ (None Seen); Hyaline Casts Urine 0-2 /LPF (0-2); UPreg QC Valid YES; Urine Pregnancy NEGATIVE (NEGATIVE); WBC Urine 0-5 /HPF (0-5)
[2024-04-26 01:52] VITALS: BP 124/73; PULSE 65; RESP 16; TEMP 36.8; O2SAT 100
[2024-04-26] MEDS: Dicyclomine HCl 10 MG CAPSULE 20 MG PO (01:52)
== END 2024-04-26 01:53 | disposition home or self-care (01) ==
PROVIDERS: Emergency Provider Internal Medicine; PCP Nurse Practitioner Family
DX: K29.00 Acute gastritis without bleeding (principal); R10.30 Lower abdominal pain, unspecified
CPT/HCPCS: 36415; 80053; 81001; 81025; 82248; 83690; 85025; 96361; 96374; 96375; 99284; 99285; J2405

== ENCOUNTER 2025-02-10 09:00 | Emergency (ER) | payer OTHER, SELFPAY ==
--- NOTE | ~2025-02-10 | US_ITS ---
EXAMINATION: US OBSTETRICAL ULTRASOUND CLINICAL INFORMATION: Vaginal bleeding, positive , hCG = 281 (4-5 weeks), rule out miscarriage. COMPARISON: None available. LMP: 01/26/2025. Gestational age by maternal dates is 3 weeks and 4 days. Estimated date of delivery by maternal dates is 10/23/2025. TECHNIQUE: Ultrasound of the maternal pelvis is performed using transabdominal and transvaginal transducers. Transvaginal imaging is performed due to inadequate visualization transabdominally. M-mode Doppler is also performed. FINDINGS: There is a normal thickness endometrial canal is 0.9 cm. There is no discrete gestational sac or dual decidual reaction identified. Uterus measures 8.4 x 4.0 x 4.9 cm. No discrete myometrial abnormality. No fluid within the endometrial canal. Normal appearance of the cervix. MATERNAL ADNEXA: The right maternal ovary measures 3.7 x 2.0 x 2.5 cm. Normal sonographic appearance. Corpus luteal cyst measuring 2.3 x 1.2 x 2.1 cm. The left maternal ovary measures 2.9 x 1.6 x 2.3 cm. Normal sonographic appearance. There is no significant maternal adnexal mass. Small amount of simple free fluid is present within the cul-de-sac and surrounding the right ovary medially. US/US OB pelvic and transvaginal IMPRESSION: 1. No evidence of gestational sac or decidual reaction. Unknown if this is due to dates being too early to visualize, or conversely spontaneous . Recommend serial follow-up beta hCG and repeat scanning as felt warranted. 2. Normal appearing ovaries, endometrium, and uterus. 3. Trace free pelvic fluid, simple in appearance, likely physiologic. Electronically signed by: Vicente Arvizu MD 02/10/2025 11:47 AM EDT
[2025-02-10 09:05] VITALS: BP 114/72; PULSE 73; RESP 20; TEMP 36.8; O2SAT 100; BMI 27.0
[2025-02-10 09:36] LABS: Appearance Urine Clear; Basophils Absolute Auto 0.1 X10*3/uL (0.0-0.2); Basophils Percent Auto 1.4 % (0-2); Color Urine Yellow; Eosinophils Absolute Auto 1.5 X10*3/uL (0.0-0.4); Eosinophils Percent Auto 23.2 % (0-4); Glucose Urine UA Negative (Negative); Hematocrit 38.3 % (37.0-47.0); Hemoglobin 13.4 g/dl (12.0-16.0); Imm Gran Abs Auto 0.02 X10*3/uL (0.00-0.03); Imm Gran Pct Auto 0.3 % (0.0-0.4); Leukocyte Esterase Urine Small (1+) (Negative); Lymphocytes Absolute Auto 1.8 X10*3/uL (1.2-4.9); Lymphocytes Percent Auto 27.7 % (20-40); MANUAL DIFF FLAG SCAN; Mean Corpuscular Hemoglobin 32.1 pg (27.0-33.0); Mean Corpuscular Volume 91.8 fL (80.0-98.0); Mean Platelet Volume 10.2 fL (9.4-12.3); Monocytes Absolute Auto 0.6 X10*3/uL (0.1-1.2); Monocytes Percent Auto 9.6 % (2-11); Neutrophils Absolute Auto 2.5 x10*3/uL (2.0-8.3); Neutrophils Percent Auto 37.8 % (45-73); Nitrite Urine Negative (Negative); Platelet Count 340 X10*3/uL (160-400); Red Blood Count 4.17 X10*6/uL (4.20-5.50); SCAN SMEAR FLAG 1; UMIC TRIGGER UACC YES; Urine Blood Large (3+) (Negative); Urine Ketones Trace mg/dL (Negative); Urine Protein Trace mg/dL (Neg-Trace); White Blood Count 6.5 X10*3/uL (4.8-10.8)
[2025-02-10 09:49] LABS: Bacteria Urine Trace (None Seen); Hyaline Casts Urine 0-2 /LPF (0-2); UACC Culture Trigger YES; WBC Urine 0-5 /HPF (0-5)
[2025-02-10 09:51] LABS: Alanine Aminotransferase 16 U/L (0-31); Albumin Level 4.2 g/dL (3.5-5.0); Alkaline Phosphatase 59 U/L (39-117); Anion Gap 11 (12-20); Aspartate Amino Transferase 18 U/L (5-31); Bilirubin Direct 0.2 mg/dL (0.0-0.5); Bilirubin Total 0.7 mg/dL (0.0-1.0); Blood Urea Nitrogen 10 mg/dL (9-16); Calcium 9.4 mg/dL (8.4-10.2); Carbon Dioxide 23 mmol/L (22-29); Chloride 107 mmol/L (96-108); Creatinine Clr Calc Pharmacy 94.5; Estimated Glomerular Filt Rate > 60; Glucose Random 101 mg/dL (60-115); HCG Quantitative 281 mIU/mL; Lipase 22 U/L (8-78); Potassium 3.8 mmol/L (3.3-5.1); Sodium 137 mmol/L (135-145); Total Protein 6.9 g/dL (6.5-8.0)
--- NOTE | 2025-02-10 09:53 | ED_ITS ---
HPI - Female Genitourinary General Chief complaint: Vaginal Bleeding Stated complaint: Vaginal bleeding, Time Seen by Provider: 02/10/25 09:44 Source: patient Mode of arrival: ambulatory Limitations: no limitations History of Present Illness HPI Narrative: This is a 39 years old female presented to the emergency department with a chief complaint of vaginal bleeding. She states she did a home test which was positive. She is AB1. The bleeding is like spotting. MD elicited complaint: vaginal bleeding Onset (ago): day(s) (1) Severity: mild Female Urogenital Radiation: Non-Radiating Quality of pain: cramping Consistency: constant Vaginal bleeding: moderate Exacerbating factors: none Relieving factors: none Associated symptoms: denies other symptoms Related Data Home Medications ?Medication ?Instructions ?Recorded ?Confirmed valacyclovir 500 mg PO DAILY 09/25/20 09/29/20 fluoxetine 40 mg capsule 40 mg PO DAILY 09/28/20 09/29/20 Previous Rx's ?Medication ?Instructions ?Recorded cyclobenzaprine 10 mg tablet 10 mg PO BEDTIME PRN pain #14 tabs 07/13/22 dicyclomine 20 mg tablet 20 mg PO TID PRN Abdominal 04/26/24 Discomfort #20 tabs pantoprazole 40 mg tablet,delayed 40 mg PO DAILY #30 tabs 04/26/24 release (Protonix) Allergies Allergy/AdvReac Type Severity Reaction Status Date / Time No Known Allergies Allergy Verified 02/10/25 09:08 Review of Systems 2 Cardiovascular: Cardiovascular: Reports no additional cardiovascular complaints Neurologic: Reports system reviewed and no additional complaints, except as documented PMFSH Past Medical History Attestation statement: The following information was validated with the patient. Medical History Depression Stomach ulcer Herpes Surgical History S/P laparoscopic appendectomy Hx of breast reduction, elective Social History Social History Household Members: Children Housing: Apartment Do you presently have visiting nurse or other home services: No Alcohol intake: current Alcohol intake frequency: a few times a week Alcohol type: beer, wine and hard liquor Comment: sleeping Cigarettes Per Day: 1 Years Smoked: 5 Second Hand Smoke Exposure: No Substance Use Type: Marijuana service: No Current occupational status: employed Physical Exam 2 Vital Signs: Vital Signs: Last Vital Signs Temp 0 F L 02/10/25 13:00 Pulse 62 02/10/25 13:00 Resp 18 02/10/25 13:00 BP 105/62 02/10/25 13:00 Pulse Ox 100 02/10/25 13:00 O2 Del Method Room Air 02/10/25 13:00 BMI result Body Mass Index 27.0 No acute distress comfortable in the stretcher vital signs stable Const: General: cooperative Nutritional Appearance: well nourished O rientation/consciousness: patient oriented x3 Limitations: no limitations HEENT: Head: Yes normal to inspection General nose exam: Normal external nose present Face and sinus: Yes normal facial exam Mouth: Normal oral and palatal mucosa present Neck: Neck: Yes normal visual inspection and Yes full ROM Chest: Chest palpation & inspection: normal inspection of the chest Resp: Effort & Inspection: normal respiratory effort Cardio: Jugular venous distension: no JVD Rate: regular rate Rhythm: r egular rhythm GI: Inspection: Yes normal to inspection Palpation (GI): Soft to palpation, not firm, nontender and no guarding Percussion: Yes normal to percussion Skin: General skin exam: no rashes or lesions noted, elasticity normal and turgor normal Lesions: no lesions Rashes: no rashes Trauma: no lacerations or abrasions Neuro: General: patient oriented x3 Extrem: General: Yes normal to inspection, Yes full ROM and Yes capillary refill normal Course Course Course Narrative: Ultrasound was done there was no IUP differential diagnosis early versus ectopic versus miscarriage. This was explained to the patient. She will need repeat HCG and repeat ultrasound. She does have an OBGYN she will call her own OB today for follow-up. She understands the quant needs to be repeated in a couple of days. Ectopic precautions was given to the patient Medical Decision Making Medical Decision Making MDM Narrative: Patient is here complaining of vaginal bleeding we will obtain labs quant HCG Differential Diagnosis Differential Diagnoses: The differential diagnosis associated with the presentation includes Dysfunctional uterine bleeding/ectopic /miscarriage Admission/Observation Consideration of admission/observation: Escalation of care including admission/observation considered Lab Data MDM Lab Attestation statement: I reviewed the patient's lab results. 02/10/25 09:25 02/10/25 09:25 Labs: Lab Results 02/10/25 02/10/25 Range/Units 09:25 11:57 WBC 6.5 (4.8-10.8) X10*3/uL RBC 4.17 L (4.20-5.50) X10*6/uL Hgb 13.4 (12.0-16.0) g/dl Hct 38.3 (37.0-47.0) % MCV 91.8 (80.0-98.0) fL MCH 32.1 (27.0-33.0) pg MCHC 35.0 (31.0-35.0) g/dl RDW 13.0 (11.0-16.0) % Plt Count 340 (160-400) X10*3/uL MPV 10.2 (9.4-12.3) fL Immature Gran % (Auto) 0.3 (0.0-0.4) % Neut % (Auto) 37.8 L (45-73) % Lymph % (Auto) 27.7 (20-40) % [place] % (Auto) 9.6 (2-11) % Eos % (Auto) 23.2 H (0-4) % Baso % (Auto) 1.4 (0-2) % Lymph # (Auto) 1.8 (1.2-4.9) X10*3/uL [place] # (Auto) 0.6 (0.1-1.2) X10*3/uL Eos # (Auto) 1.5 H (0.0-0.4) X10*3/uL Baso # (Auto) 0.1 (0.0-0.2) X10*3/uL Abs Immat Gran (auto) 0.02 (0.00-0.03) X10*3/uL Absolute Neuts (auto) 2.5 (2.0-8.3) x10*3/uL Absolute Nucleated RBC 0.000 (0.0-0.012) X10*3/uL Nucleated RBC % (auto) 0.0 (0.0-0.2) /100WBC Smear Tech's Comments VERIFIED Sodium 137 (135-145) mmol/L Potassium 3.8 (3.3-5.1) mmol/L Chloride 107 (96-108) mmol/L Carbon Dioxide 23 (22-29) mmol/L Anion Gap 11 L (12-20) BUN 10 (9-16) mg/dL Creatinine 0.86 (0.5-1.4) mg/dL Estim Creat Clear Calc 94.5 Estimated GFR > 60 Random Glucose 101 (60-115) mg/dL Calcium 9.4 (8.4-10.2) mg/dL Total Bilirubin 0.7 (0.0-1.0) mg/dL Direct Bilirubin 0.2 (0.0-0.5) mg/dL AST 18 (5-31) U/L ALT 16 (0-31) U/L Alkaline Phosphatase 59 (39-117) U/L Total Protein 6.9 (6.5-8.0) g/dL Albumin 4.2 (3.5-5.0) g/dL Lipase 22 (8-78) U/L Beta HCG, Quant 281 mIU/mL Urine Color Yellow Urine Appearance Clear Urine pH 6.0 (5.0-9.0) Ur Specific [place] 1.020 (1.005-1.025) Urine Protein Trace (Neg-Trace) mg/dL Urine Glucose (UA) Negative (Negative) mg/dL Urine Ketones Trace (Negative) mg/dL Urine Blood Large (3+) H (Negative) Urine Nitrite Negative (Negative) Ur Leukocyte Esterase Small (1+) H (Negative) Urine RBC 3-5 H (0-2) /HPF Urine WBC 0-5 (0-5) /HPF Ur Squamous Epith Cells 3-5 (0-2) /HPF Urine Bacteria Trace (None Seen) Hyaline Casts 0-2 (0-2) /LPF Blood Type O Positive Antibody Screen NEGATIVE Independent Interpretation I performed an independent interpretation of an: Ultrasound Interpretation: No IUP Radiology Impression Discussion of test interpretation with radiology: I have reviewed the radiologist's reading. Discharge Plan Discharge Clinical Impression: Threatened Patient Disposition: Home, Self-Care Instructions: Threatened Miscarriage (ED) Additional Instructions: As we discussed we could not not see a definite by ultrasound at this time. Your hormone of the was 281. You should have a follow-up with your OBGYN and repeat quant HCG (hormone of the in a couple of days) return to the emergency room if you changing a pad every hours, if you have abdominal pain any concern Prescriptions: No Action valacyclovir 500 mg PO DAILY cyclobenzaprine 10 mg tablet 10 mg PO BEDTIME PRN (Reason: pain) Qty: 14 0RF pantoprazole [Protonix] 40 mg tablet,delayed release (DR/EC) 40 mg PO DAILY Qty: 30 0RF dicyclomine 20 mg tablet 20 mg PO TID PRN (Reason: Abdominal Discomfort) Qty: 20 0RF fluoxetine 40 mg capsule 40 mg PO DAILY Referrals: [facility] [Primary Care Provider] - 2 days Interventions: ED Discharge Assessment Last Done: 02/10/25 13:00 Discharge Date/Time: 02/10/25 13:01 Print Language: Pashto
[2025-02-10 10:20] LABS: SLIDE REVIEW VERIFIED
--- NOTE | 2025-02-10 10:55 | PC.NURSE ---
Patient away for ultrasound. Aware of positive result, notified by Dr. Coronado.
--- OUTSIDE RECORDS SUMMARY | 2025-02-10 11:03 | XMS_ITS | Continuity of Care Document ---
Author Organization [facility] vices Address [address] [place] [address] Phone Care Team Providers Care Banner Painter Name Role Phone Calli Peacock DDS Unavailable Unavailab le Allergies, Adverse Reactions, Alerts Substance Reaction Status Criticality No Known Allergies Active No Inform ation Problems Condition Type Effective Dates (start - stop) Clini landon Status Comments No Known Problems Procedures Procedure Date Intraoral-Periapical First Film 024 Limited Oral Evaluation-Problem Focused Treatment Plan Not Started Time OutDTPCM Informed Consent Advance Directives Directive Yes / No Effective Date File Name No Information Encounters Encounter Description Practice Location Reason(s) For Visit Diagnoses Date Provider Providers Copied on Encounter [facility], [address] [place] [address], [id number], [place] tel:[phone] [facility] Dental Encounter for dental exam and cleaning w/o abnormal findingsEncounter for screening for dental disorders Ayush Mccurdy. [address] [facility], [id number] [address] [place] [address], [phone] , [place]. tel:[phone] Family History Family Member Type Diagnosis Age At Onset No Information Payers Payer name Insurance type Covered constitution party ID Authoriza tion(s) No Information Social History Type Description Quantity Date Captured Comments Alcohol Use Details Unknown Caffeine Use Details Unknown Tobacco Use Status Smoking Status Current every day smoker Non-Smoking Tobacco Use Details : No Details Available : No Details Available Sex Female Sexual Orientation Straight or heterosexual Gender Identity Female Vital Signs Date / Time: Height Weight BMI Pulse Rate Blood Pressure Temperature Respiratory Rate Body Surface Area Head Circumference Head Circ. Percentile Wt./[place]. Percentile BMI percentile Pulse Ox Inhaled Ox 1:15 PM 63 /min 110/72 mm[Hg] Chief Complaint And Reason For Visit No Information Reason For Referral Reason For Referral No Information History Of Present Illness Encounter Date Complaint History Of Prese nt Illness No Information Functional Status Date Functional Assessmen t No Information Instructions Date Instruction Additional Infor mation No Information Assessments Type Assessment Date No Information Patient Care Teams Name Effective Dates (start - stop) Status Members No Information
--- OUTSIDE RECORDS SUMMARY | 2025-02-10 11:04 | XMS_ITS | Clinical Summary ---
Author Organization [facility] Address [address] [place] [address] Phone Care Team Providers Care Tandem Mill Operator Name Role Phone Physician, No Pcp Primary Care Provider Unavaila ble Allergies No known active allergies Medications No known medications Encounters Date Type Department Care Team Description 01/11/2025 10:22 PM EDT - 01/12/2025 1:21 AM EDT Emergency Emergency [address] [place] [address] Bilateral lower abdominal cramping (Primary Dx); Nausea and vomiting, unspecified vomiting type Discharge Disposition: Home or Self Care from Last 3 Months Surgical History Surgery Date Site/Laterality Comments APPENDECTOMY Social History Tobacco Use Types Packs/Day Years Used Date Smoking Tobacco: Never Assessed Comments Unknown Sex and Gender Information Value Date Recorded Sex Assigned at Female 01/11/2025 10:50 PM EDT Legal Sex Female 5:07 AM EST Gender Identity Female 01/11/2025 10:50 PM EDT Sexual Orientation Straight 01/11/2025 10 :50 PM EDT Obstetrics History Last Filed Vital Signs Vital Sign Reading Time Taken Comments Blood Pressure 109/79 01/11/2025 10:20 PM EDT Pulse 91 01/11/2025 10:20 PM EDT Temperature 36.9 ??C (98.4 ??F) 01/11/2025 10:20 PM E DT Respiratory Rate 18 01/11/2025 10:20 PM EDT Oxygen Saturation 97% 01/12/2025 1:04 AM EDT Inhaled Oxygen Concentration - - Weight 77.6 kg (171 lb) 01/11/2025 10:20 PM EDT Height 170.2 cm (5' 7 ) 01/11/2025 10:20 PM EDT Body Mass Index 26.78 01/11/2025 10:20 PM EDT Plan of Treatment Health Maintenance Due Date Last Done Comments Cervical Cancer Screening: Pap Smear 2006 Hepatitis B Vaccines (3 of 3 - 19+ 3-dose series) 01/07/2008 08/12/2007, 07/09/2007 COVID-19 Vaccine (4 - season) 2024 11/05/2021, 02/24/2021, 01/27/2021 DTaP,Tdap,and Td Vaccines (4 - Td or Tdap) 11/02/2024 11/02/2014, 04/15/2013, 02/19/2012 Depression Screening 01/11/2025 HIV Screening 01/11/2025 Hepatitis C Screening 01/11/2025 Social Influencers of Health Screening 01/11/2025 Influenza Vaccine (Season Ended) 2025 07/31/2023, 07/21/2021, 08/12/2020, Additional history exists HPV Vaccines Completed 02/19/2012, 03/29, 02/10/2010 MMR Vaccines Aged Out 01/10/2019 No longer eligi ble based on patient's age to complete this topic HIB Vaccines Aged Out No longer eligi ble based on patient's age to complete this topic Hepatitis A Vaccines Aged Out No long er eligible based on patient's age to complete this topic IPV Vaccines Aged Out No longer eligi ble based on patient's age to complete this topic Meningococcal ACWY Vaccine Aged Out N o longer eligible based on patient's age to complete this topic Meningococcal B Vaccine Aged Out No l onger eligible based on patient's age to complete this topic Pneumococcal Vaccine: Pediatrics (0 to 5 Years) and At-Risk Patients (6 to 64 Years) Aged Out No longer eligible based on patient's age to complete this topic RSV Immunization Patients Under 20 months Aged Out No longer eligible based on patient's age to complete this topic Varicella Vaccines Aged Out No longer eligible based on patient's age to complete this topic Procedures Procedure Name Priority Date/Time Associated Diagnosis Comments RESPIRATORY VIRUS PANEL MOLECULAR STUDY STAT 01/11/2025 11:09 PM EDT POC , URINE DIAGNOSTIC STAT 01/11/2025 10:18 PM EDT CBC WITH AUTO DIFFERENTIAL STAT 01/11/2025 10:17 PM EDT LIPASE STAT 01/11/2025 10:17 PM EDT COMPREHENSIVE METABOLIC PANEL STAT 01/11/2025 10:17 PM EDT CBC AND DIFFERENTIAL STAT 01/11/2025 10:17 PM EDT REICH URINE CULTURE TUBE STAT 01/11/2025 10:16 PM EDT URINALYSIS WITH REFLEX MICROSCOPIC AND CULTURE STAT 01/11/2025 10:16 PM EDT URINALYSIS WITH REFLEX MICROSCOPIC AND CULTURE STAT 01/11/2025 10:16 PM EDT from Last 3 Months Results * Respiratory virus panel molecular study (01/11/2025 11:09 PM EDT) Pathologist [facility] [place] Adenovirus Detection by PCR Not Detected Not Detected LAB MICROBIOLOGY METHOD 01/12/2025 12:14 AM EDT [facility] Influenza A PCR Not Detected Not Detected LAB MICROBIOLOGY METHOD 01/12/2025 12:14 AM EDT [facility] Influenza B PCR Not Detected Not Detected LAB MICROBIOLOGY METHOD 01/12/2025 12:14 AM EDT [facility] Coronavirus 229E Not Detected Not Detected LAB MICROBIOLOGY METHOD 01/12/2025 12:14 AM EDT [facility] Coronavirus HKU1 Not Detected Not Detected LAB MICROBIOLOGY METHOD 01/12/2025 12:14 AM EDT [facility] Coronavirus OC43 Not Detected Not Detected LAB MICROBIOLOGY METHOD 01/12/2025 12:14 AM EDT [facility] Coronavirus NL63 Not Detected Not Detected LAB MICROBIOLOGY METHOD 01/12/2025 12:14 AM EDT [facility] Parainfluenza Virus 1 Not Detected Not Detected LAB MICROBIOLOGY METHOD 01/12/2025 12:14 AM EDT [facility] Parainfluenza Virus 2 Not Detected Not Detected LAB MICROBIOLOGY METHOD 01/12/2025 12:14 AM EDT [facility] Parainfluenza Virus 3 Not Detected Not Detected LAB MICROBIOLOGY METHOD 01/12/2025 12:14 AM EDT [facility] Parainfluenza Virus 4 Not Detected Not Detected LAB MICROBIOLOGY METHOD 01/12/2025 12:14 AM EDT [facility] RSV PCR Not Detected Not Detected LAB MICROBIOLOGY METHOD 01/12/2025 12:14 AM EDT [facility] Human Metapneumovirus A and B Not Detected Not Detected LAB MICROBIOLOGY METHOD 01/12/2025 12:14 AM EDT [facility] Rhinovirus/Entero virus Not Detected Not Detected LAB MICROBIOLOGY METHOD 01/12/2025 12:14 AM EDT [facility] Bordetella pertussis Not Detected Not Detected LAB MICROBIOLOGY METHOD 01/12/2025 12:14 AM EDT [facility] Bordetella parapertussis Not Detected Not Detected LAB MICROBIOLOGY METHOD 01/12[facility]2025 [facility] Mycoplasma pneumo by PCR Not Detected Not Detected LAB MICROBIOLOGY METHOD 01/12/2025 12:14 AM EDT [facility] Chlamydia pneumoniae Not Detected Not Detected LAB MICROBIOLOGY METHOD 01/12/2025 12:14 AM EDT [facility] SARS COV-2 Not Detected Not Detected LAB MICROBIOLOGY METHOD 01/12/2025 12:14 AM EDT [facility] Swab Both anterior nares / Unknown Non-blood Collection / Unknown 01/11/2025 11:09 PM EDT 01/11/2025 11:19 PM EDT [facility] - 01/12/2025 12:14 AM EDT Testing was performed using the Biofire Respiratory Pathogen PCR Assay. All results must be correlated with the clinical findings. Results should not be used as the sole basis for diagnosis. False Negative results may occur from the presence of sequence variants in the region targeted by the assay or the presence of inhibitors. Results may be affected by concurrent antiviral/antimicrobial therapy or levels of organisms that are below the limit of detection. Tierra HANSON LAB MICROBIOLOGY - GENERAL RADHA RODRIGUEZ Final Result [facility] [address] [place] [address], * POC , urine manually resulted (01/11/2025 10:18 PM EDT) Pathologist [facility] HCG, Ur POC Negative Negative POC hCG Int QC Pass? Yes Yes Urine Urine specimen obtained by clean catch procedure / Unknown 01/11/2025 10:18 PM EDT Helen Pond DO POINT OF CARE TEST ENTER/ EDIT ORDERABLES Final Result * (ABNORMAL) CBC auto differential (01/11/2025 10:17 PM EDT) [facility] WBC 7.8 4.8 - 10.8 K/mcL LAB HEMETOLOGY METHOD 01/11/2025 10:51 PM EDT [facility] RBC 4.00 3.80 - 4.80 M/mcL LAB HEMETOLOGY METHOD 01/11/2025 10:51 PM EDT [facility] Hemoglobin 12.7 11.5 - 16.0 g/dL LAB HEMETOLOGY METHOD 01/11/2025 10:51 PM EDT [facility] Hematocrit 38.2 35.0 - 47.0 % LAB HEMETOLOGY METHOD 01/11/2025 10:51 PM EDT [facility] MCV 95.5 79.0 - 98.0 FL LAB HEMETOLOGY METHOD 01/11/2025 10:51 PM EDT [facility] MCH 31.8 27.0 - 32.0 pcg LAB HEMETOLOGY METHOD 01/11/2025 10:51 PM EDT [facility] MCHC 33.2 32.0 - 37.0 g/dL LAB HEMETOLOGY METHOD 01/11/2025 10:51 PM EDT [facility] RDW 12.8 11.0 - 15.0 % LAB HEMETOLOGY METHOD 01/11/2025 10:51 PM EDT [facility] Platelets 350 130 - 400 K/mcL LAB HEMETOLOGY METHOD 01/11/2025 10:51 PM EDT [facility] MPV 10.8 7.0 - 11.0 FL LAB HEMETOLOGY METHOD 01/11/2025 10:51 PM EDT [facility] NRBC 0.0 <1.0 % LAB HEMETOLOGY METHOD 01/11/2025 10:51 PM EDT [facility] NRBC Absolute 0.00 <0.10 K/mcL LAB HEMETOLOGY METHOD 01/11/2025 10:51 PM EDT [facility] Neutrophils Relative 42.4 % LAB HEMETOLOGY METHOD 01/11/2025 10:51 PM T [facility] Lymphocytes Relative 33.5 % LAB HEMETOLOGY METHOD 01/11/2025 10:51 PM [facility] Monocytes Relative 11.0 % LAB HEMETOLOGY METHOD 01/11/2025 10:51 PM EDT [facility] Eosinophils Relative 12.0 % LAB HEMETOLOGY METHOD 01/11/2025 10:51 PM EDT [facility] Basophils Relative 0.8 % LAB HEMETOLOGY METHOD 01/11/2025 10:51 PM EDT [facility] Immature Granulocytes Relative 0.3 % LAB HEMETOLOGY METHOD 01/11/2025 10:51 PM EDT [facility] Neutrophils Absolute 3.29 1.50 - 7.00 K/mcL LAB HEMETOLOGY METHOD 01/11/2025 10:51 PM EDT [facility] Lymphocytes Absolute 2.60 1.00 - 5.00 K/mcL LAB HEMETOLOGY METHOD 01/11/2025 10:51 PM EDT [facility] Monocytes Absolute 0.85 0.20 - 1.00 K/mcL LAB HEMETOLOGY METHOD 01/11/2025 10:51 PM EDT [facility] Eosinophils Absolute 0.93(H) 0.00 - 0.50 K/[facility] LAB HEMETOLOGY METHOD 01/11/2025 10:51 PM EDT [facility] Basophils Absolute 0.06 0.00 - 0.20 K/[facility] LAB HEMETOLOGY METHOD 01/11/2025 10:51 PM EDT [facility] Immature Granulocytes Absolute 0.02 0.00 - 0.03 K/[facility] LAB HEMETOLOGY METHOD 01/11/2025 10:51 PM EDT [facility] Blood Venous blood specimen / Unknown Venipuncture / Unknown 01/11/2025 10:17 PM EDT 01/11/2025 10:45 PM EDT us Helen Pond DO LAB BLOOD ORDERABLES Ivana l Result [facility] [address] [place] [address], * Lipase (01/11/2025 10:17 PM EDT) Lipase 45 13 - 75 unit/L LAB CHEMISTRY METHOD 01/11/2025 11:10 PM EDT [facility] Blood Venous blood specimen / Unknown Venipuncture / Unknown 01/11/2025 10:17 PM EDT 01/11/2025 10:45 PM EDT us Helen Pond DO LAB BLOOD ORDERABLES Ivana l Result [facility] [address] [place] [address], [place] [phone] * Comprehensive metabolic panel (01/11/2025 10:17 PM EDT) Sodium 138 133 - 145 mmol/L LAB CHEMISTRY METHOD 01/11/2025 11:10 PM EDT [facility] Potassium 3.7 3.5 - 5.5 mmol/L LAB CHEMISTRY METHOD 01/11/2025 11:10 PM [facility] Chloride 104 96 - 110 mmol/L LAB CHEMISTRY METHOD 01/11/2025 11:10 PM [facility] CO2 27 21 - 32 mmol/L LAB CHEMISTRY METHOD 01/11/2025 11:10 PM [facility] Anion Gap 7 3 - 11 LAB CHEMISTRY METHOD 01/11/2025 11:10 PM [facility] Glucose 84 70 - 100 mg/dL LAB CHEMISTRY METHOD 01/11/2025 11:10 PM [facility] BUN 10 5 - 25 mg/dL LAB CHEMISTRY METHOD 01/11/2025 11:10 PM [facility] Creatinine 1.04 0.50 - 1.10 mg/dL LAB CHEMISTRY METHOD 01/11/2025 11:10 PM [facility] eGFR 70 >=60 mL/min/1. 73m2 LAB CHEMISTRY METHOD 01/11/2025 11:10 PM [facility] Comment:Calculation based on the??Chronic Kidney Disease Epidemiology Collaboration (CKD-EPI) equation refit??without adjustment for race. BUN/Creatinine Ratio 9.6 LAB CHEMISTRY METHOD 01/11/2025 11:10 PM [facility] Calcium 9.4 8.5 - 10.5 mg/dL LAB CHEMISTRY METHOD 01/11/2025 11:10 PM EDT [facility] AST (SGOT) 14 10 - 42 unit/L LAB CHEMISTRY METHOD 01/11/2025 11:10 PM EDT [facility] ALT (SGPT) 20 10 - 60 unit/L LAB CHEMISTRY METHOD 01/11/2025 11:10 PM EDT [facility] Alkaline Phosphatase 67 42 - 121 unit/L LAB CHEMISTRY METHOD 01/11/2025 11:10 PM EDT [facility] Total Protein 7.1 6.0 - 8.0 g/dL LAB CHEMISTRY METHOD 01/11/2025 11:10 PM T [facility] Albumin 4.0 3.2 - 5.0 g/dL LAB CHEMISTRY METHOD 01/11/2025 11:10 PM [facility] Total Bilirubin 0.4 0.0 - 1.4 mg/dL LAB CHEMISTRY METHOD 01/11/2025 11:10 PM T [facility] Blood Venous blood specimen / Unknown Venipuncture / Unknown 01/11/2025 10:17 PM EDT 01/11/2025 10:45 PM EDT us Zachery Sabino Pond DO LAB BLOOD ORDERABLES Ivana l Result [facility] [address] [place] [address], * (ABNORMAL) Urinalysis with reflex microscopic and culture (01/11/2025 10:16 PM EDT) Specific [place] Urine 1.030 1.003 - 1.030 LAB URINALYSIS - AUTOMATED METHOD 01/11/2025 10:52 PM [facility] pH, Urine 6.0 5.0 - 8.0 pH LAB URINALYSIS - AUTOMATED METHOD 01/11/2025 10:52 PM [facility] Leukocytes, Urine Negative Negative LAB URINALYSIS - AUTOMATED METHOD 01/11/2025 10:52 PM EDT [facility] Nitrite, Urine Negative Negative LAB URINALYSIS - AUTOMATED METHOD 01/11/2025 10:52 PM EDT [facility] Protein, Urine Trace <=Trace mg/dL LAB URINALYSIS - AUTOMATED METHOD 01/11/2025 10:52 PM EDT [facility] Glucose, Urine Negative Negative mg/dL LAB URINALYSIS - AUTOMATED METHOD 01/11/2025 10:52 PM EDT [facility] Ketones, Urine Trace(A) Negative mg/dL LAB URINALYSIS - AUTOMATED METHOD 01/11/2025 10:52 PM EDT [facility] Urobilinogen, Urine 1.0 0.2 - 1.0 mg/dL LAB URINALYSIS - AUTOMATED METHOD 01/11/2025 10:52 PM [facility] Bilirubin, Urine Negative Negative LAB URINALYSIS - AUTOMATED METHOD 01/11/2025 10:52 PM T [facility] Blood, Urine Negative Negative LAB URINALYSIS - AUTOMATED METHOD 01/11/2025 10:52 PM T [facility] Urine Urine specimen obtained by clean catch procedure / Unknown Non-blood Collection / Unknown 01/11/2025 10:16 PM EDT 01/11/2025 10:46 PM EDT us Helen Pond DO LAB URINE ORDERABLES Ivana l Result [facility] [address] [place] [address], * Reich urine culture tube (01/11/2025 10:16 PM EDT) Extra Tube Hold for add-ons. 01/12/2025 12:01 AM EDT [facility] Comment:Auto resulted. Urine Urine specimen obtained by clean catch procedure / Unknown Non-blood Collection / Unknown 01/11/2025 10:16 PM EDT 01/11/2025 10:45 PM EDT us Helen Pond DO LAB URINE ORDERABLES Ivana crissy Result [facility] [address] [place] [address], [place] [phone] from Last 3 Months Insurance [facility] [place] ESPINAL [id number] Care Teams Tandem Mill Operator Relationship Specialty Start Date End Date Physician, No Pcp PCP - General 01/11/25
[2025-02-10 11:41] VITALS: BP 97/50; PULSE 59; RESP 14; TEMP 36.5; O2SAT 100
--- NOTE | 2025-02-10 12:47 | PC.NURSE ---
Reports small amount of blood only when wiping .
[2025-02-10 13:00] VITALS: BP 105/62; PULSE 62; RESP 18; TEMP -17.7; TEMP 0; O2SAT 100
== END 2025-02-10 13:01 | disposition home or self-care (01) ==
PROVIDERS: Emergency Provider Emergency Medicine
DX: O20.0 Threatened abortion (principal); Z3A.00 Weeks of gestation of pregnancy not specified
CPT/HCPCS: 36415; 76801; 76817; 80048; 80076; 81001; 83690; 84702; 85025; 86850; 86900; 86901; 87086; 99283; 99284

== ENCOUNTER → 2025-02-10 10:21 | Outpatient (BNV) | payer OTHER, SELFPAY | PROVIDERS: Emergency Provider Emergency Medicine; Visit Provider Radiology Diagnostic Radiology | DX: O26.851 Spotting complicating pregnancy, first trimester (principal); Z3A.01 Less than 8 weeks gestation of pregnancy | CPT/HCPCS: 76801; 76817 ==

== ENCOUNTER 2025-04-11 11:19 | Emergency (ER) | payer OTHER, SELFPAY ==
--- NOTE | ~2025-04-11 | US_ITS ---
CLINICAL HISTORY: spotting, cramping, 13 wks gestation US OB 1st trimester transabdominal Comparison: US/CO/SR - US OB PELVIC AND TRANSVAGINAL - 02/10/25 10:52 EDT Findings: Single intrauterine . CRL: 63.3 mm. EGA: 12 weeks, 5 days. MARK: October 19, 2025. Previously established gestational age: 12 weeks 1 day. Normal yolk sac . Cardiac activity: 143 bpm. No subchorionic bleed. Right ovary 2 x 4.1 x 2.3 cm. Left ovary 1.3 x 2.2 x 2.6 cm. IMPRESSION: Single intrauterine estimated 12 weeks, 5 days gestational age by today's ultrasound criteria. This document has been electronically signed by: Tosha Pantoja MD on 04/11/2025 13:28:04
[2025-04-11 11:22] VITALS: BP 119/78; PULSE 72; RESP 16; TEMP 36.2; O2SAT 100; BMI 27.6
--- NOTE | 2025-04-11 11:25 | ED_ITS ---
HPI - General Adult General Chief complaint: Vaginal Bleeding Stated complaint: 13 weeks preg, cramping, spotting Time Seen by Provider: 04/11/25 12:11 History of Present Illness ED Provider: Rodrigo Chan PA-C HPI narrative: 39-year-old female with medical history of depression, PUD, presents to the ED for vaginal bleeding. Patient states she woke up this morning to use the bathroom and noticed some light pink blood on the toilet tissue after urination. She states she is also experiencing abdominal cramping that has been ongoing since finding out that she was in January. Patient follows [facility] and her last OB appointment was during the last week of February. States she had an ultrasound done and her OB stated that everything looked okay at that time. Reports last sexual activity was 3 days ago without post coitus vaginal bleeding. Patient has not taken any medications today for pain relief. Denies chest pain, shortness of breath, nausea, vomiting, black/tarry stool, headaches, visual changes abdominal pain. MD complaint: vaginal bleeding Related Data Home Medications ?Medication ?Instructions ?Recorded ?Confirmed valacyclovir 500 mg PO DAILY 09/25/20 09/29/20 fluoxetine 40 mg capsule 40 mg PO DAILY 09/28/20 09/29/20 Previous Rx's ?Medication ?Instructions ?Recorded cyclobenzaprine 10 mg tablet 10 mg PO BEDTIME PRN pain #14 tabs 07/13/22 dicyclomine 20 mg tablet 20 mg PO TID PRN Abdominal 04/26/24 Discomfort #20 tabs pantoprazole 40 mg tablet,delayed 40 mg PO DAILY #30 tabs 04/26/24 release (Protonix) Allergies Allergy/AdvReac Type Severity Reaction Status Date / Time No Known Allergies Allergy Verified 04/11/25 11:24 Review of Systems 2 Review of Systems: CONST: Negative for fever, body aches and chills. HENT: Negative for neck pain/stiffness, headache, congestion, sore throat, swelling. EYES: Negative for discharge/pain or vision changes. RESP: Negative for cough/hemoptysis and shortness of breath. CV: Negative chest pain, difficulty breathing, palpitations. ABD: Negative pain, nausea, vomiting. POS abd cramping : Negative increase frequency, dysuria, blood in urine or stool. POS vaginal bleeding MUSC: Negative for muscle aches, edema. SKIN: Negative rash, lesions/sores. NEURO: Negative headache, dizziness, weakness. [facility] Past Medical History Attestation statement: The following information was validated with the patient. Source: old records reviewed and nursing notes reviewed Medical History Depression Stomach ulcer Herpes Surgical History S/P laparoscopic appendectomy Hx of breast reduction, elective Social History Social History Household Members: Children Housing: Apartment Do you presently have visiting nurse or other home services: No Alcohol intake: current Alcohol intake frequency: a few times a week Alcohol type: beer, wine and hard liquor Comment: sleeping Cigarettes Per Day: 1 Years Smoked: 5 Smoked in Last 30 Days: No Second Hand Smoke Exposure: No Use of substances other than those prescribed or required for medical reasons: No Substance Use Type: Marijuana Advance Directives: No Advance Directives Information Provided: No Patient : No service: No Current occupational status: employed Physical Exam ED Vital Signs: Vital Signs - 24 hr 04/11/25 11:22 04/11/25 13:53 Temperature 97.2 F 97.2 F Pulse Rate 72 72 Respiratory Rate 16 16 Blood Pressure 119/78 119/78 Pulse Oximetry 100 100 Oxygen Delivery Method Room Air Room Air BMI result Body Mass Index 27.6 GENERAL APPEARANCE: ?AxOx4, generally well-appearing, no acute distress. HEENT: ?NC, AT. MMM. EOMI, clear conjunctiva, oropharynx clear. HEART:? Normal rate and regular rhythm, normal S1/S1, no m/r/g LUNGS:? CTAB, moving air well. No crackles or wheezes are heard. ABDOMEN: ?Soft, nontender, nondistended with good bowel sounds heard. BACK: No CVAT, no obvious deformity. EXTREMITIES: ?Without cyanosis, clubbing or edema. NEUROLOGICAL: ?Grossly nonfocal. Alert and oriented, moving all 4 extremities. Observed to ambulate with normal gait. Skin: ?Warm and dry without any rash. Course Course Course Narrative: This is a rapid medical exam performed by Deborah Donovan NP: Additional HPI, ROS, PE not included below will be deferred to primary provider. Patient is a 39-year-old 13-week gestation female, LMP 01/15/25, history of one miscarriage in the past presenting with complaint of lower abdominal cramping and bright red spotting on the toilet paper after wiping this am. States used a dose of 24 hour Monistat and felt unwell after that. Follow with [facility], has had one visit so far and did have u/s confirming . Plan: Labs, UA, U/S Medications Administered Discontinued Medications Generic Name Dose Route Start Last Admin Trade Name Freq PRN Reason Stop Dose Admin Acetaminophen 975 mg 04/11/25 12:29 04/11/25 12:39 Acetaminophen 325 Mg Tablet PO 04/11/25 12:30 975 mg ONCE ONE Administration Medical Decision Making Medical Decision Making MDM Narrative: 9-year-old female with medical history of depression, PUD, presents to the ED for vaginal bleeding. Patient states she woke up this morning to use the bathroom and noticed some light pink blood on the toilet tissue after urination. She states she is also experiencing abdominal cramping that has been ongoing since finding out that she was in January. Patient follows [facility] and her last OB appointment was during the last week of February. States she had an ultrasound done and her OB stated that everything looked okay at that time. Reports last sexual activity was 3 days ago without post coitus vaginal bleeding. VSS, in no acute distress, nontoxic appearing. Physical exam benign, abdomen soft, nontender, no rigidity no guarding. Cardiac exam without murmurs rubs gallops, lungs CTAB. No LE edema. No CVA tenderness Labs unremarkable, patient O-positive. HCG appropriate at 63,721. UA without evidence of infection or blood in urine. Vaginitis panel including BV, CT NG done and sent to lab awaiting results. Will call patient with results. ultrasound revealed a single intrauterine with appropriate heartbeat at 143 beats per minute. Patient requested Tylenol for mild abdominal cramping which she states has been occurring since she found out she was in January. Medicated her with 975 g of oral Tylenol with good effect. Patient counseled to follow up with her OB on Sunday due to vaginal spotting. Patient counseled on strict return precautions. She feels comfortable going home for self-care. Patient counseled on pelvic rest including no heavy lifting, no penetrative intercourse. Differential Diagnosis Differential Diagnoses: The differential diagnosis associated with the presentation includes Vaginal bleeding in early Threatened Ectopic UTI Admission/Observation Consideration of admission/observation: Escalation of care including admission/observation considered Lab Data MDM Lab Attestation statement: I reviewed the patient's lab results. 04/11/25 11:40 04/11/25 11:40 Labs: Lab Results 04/11/25 04/11/25 Range/Units 11:40 12:51 WBC 7.2 (4.8-10.8) X10*3/uL RBC 3.79 L (4.20-5.50) X10*6/uL Hgb 12.3 (12.0-16.0) g/dl Hct 34.7 L (37.0-47.0) % MCV 91.6 (80.0-98.0) fL MCH 32.5 (27.0-33.0) pg MCHC 35.4 H (31.0-35.0) g/dl RDW 12.2 (11.0-16.0) % Plt Count 282 (160-400) X10*3/uL MPV 10.3 (9.4-12.3) fL Immature Gran % (Auto) 0.4 (0.0-0.4) % Neut % (Auto) 56.1 (45-73) % Lymph % (Auto) 22.8 (20-40) % Valley % (Auto) 10.0 (2-11) % Eos % (Auto) 9.9 H (0-4) % Baso % (Auto) 0.8 (0-2) % Lymph # (Auto) 1.6 (1.2-4.9) X10*3/uL Valley # (Auto) 0.7 (0.1-1.2) X10*3/uL Eos # (Auto) 0.7 H (0.0-0.4) X10*3/uL Baso # (Auto) 0.1 (0.0-0.2) X10*3/uL Abs Immat Gran (auto) 0.03 (0.00-0.03) X10*3/uL Absolute Neuts (auto) 4.0 (2.0-8.3) x10*3/uL Absolute Nucleated RBC 0.000 (0.0-0.012) X10*3/uL Nucleated RBC % (auto) 0.0 (0.0-0.2) /100WBC PT 10.7 L (10.9-12.4) SEC INR 0.9 (0.9-1.1) Sodium 136 (135-145) mmol/L Potassium 3.9 (3.3-5.1) mmol/L Chloride 105 (96-108) mmol/L Carbon Dioxide 23 (22-29) mmol/L Anion Gap 12 (12-20) BUN 9 (9-16) mg/dL Creatinine 0.75 (0.5-1.4) mg/dL Estim Creat Clear Calc 109.5 Estimated GFR > 60 Random Glucose 75 (60-115) mg/dL Calcium 9.9 (8.4-10.2) mg/dL Total Bilirubin 0.5 (0.0-1.0) mg/dL AST 17 (5-31) U/L ALT 16 (0-31) U/L Alkaline Phosphatase 50 (39-117) U/L Total Protein 7.0 (6.5-8.0) g/dL Albumin 4.3 (3.5-5.0) g/dL Beta HCG, Quant 85172 mIU/mL Urine Color Yellow Urine Appearance Clear Urine pH 6.5 (5.0-9.0) Ur Specific [place] <= 1.005 (1.005-1.025) Urine Protein Negative (Neg-Trace) mg/dL Urine Glucose (UA) Negative (Negative) mg/dL Urine Ketones Negative (Negative) mg/dL Urine Blood Negative (Negative) Urine Nitrite Negative (Negative) Ur Leukocyte Esterase Negative (Negative) T. vaginalis (PCR) NOT DETECTED (Not Detect) Bact vaginosis (PCR) NEGATIVE (Negative) C. krusei/glabrata (PCR) NOT DETECTED (Not Detect) Maria group (PCR) NOT DETECTED (Not Detect) Blood Type O Positive Independent Interpretation I performed an independent interpretation of an: Ultrasound Radiology Impression Discussion of test interpretation with radiology: I have reviewed the radiologist's reading. Radiologist Impression: Findings: Single intrauterine . CRL: 63.3 mm. EGA: 12 weeks, 5 days. MARK: October 19, 2025. Previously established gestational age: 12 weeks 1 day. Normal yolk sac . Cardiac activity: 143 bpm. No subchorionic bleed. Right ovary 2 x 4.1 x 2.3 cm. Left ovary 1.3 x 2.2 x 2.6 cm. IMPRESSION: Single intrauterine estimated 12 weeks, 5 days gestational age by today's ultrasound criteria. This document has been electronically signed by: Tosha Pantoja MD on 04/11/2025 13:28:04 Dictated By: Tosha Pantoja MD Signed By: <Electronically signed by Tosha Pantoja MD in OV> External Record Review External record reviewed: Inpatient record, Office record and Outpatient record Chronic Conditions Patient?s care impacted by: Other () Discharge Plan Discharge Clinical Impression: Vaginal bleeding before 22 weeks gestation Patient Disposition: Home, Self-Care Instructions: Non-Threatening First Trimester Vaginal Bleed (ED) Additional Instructions: You were evaluated in the ED today due to vaginal bleeding. Your lab work was unconcerning, your urine test did not show any signs of infection. Your ultrasound revealed a single intrauterine estimated at 12 weeks 5 days gestational age, heartbeat of baby was 143 beats per minute which is a strong healthy heartbeat. You were given 975 mg of oral Tylenol requested by you due to abdominal cramping. You can continue to manage this at home by taking Tylenol every 8 hours. You were urged to follow up with your OB on Sunday. Let them know you were experiencing some light vaginal bleeding, some abdominal cramping, and were evaluated in the ED which showed a single uterine with adequate and healthy heartbeat of the fetus. You were encouraged to practice pelvic rest at this time. No lifting heavy items, no sexual intercourse, or penetrative activity into the vagina. We encourage you to seek care at the hospital where you receive OBGYN services. However, you are more than welcome to present at this hospital at any time for your care. Please return to the emergency department if you experience fever over 100.4?, increased abdominal cramping, abdominal pain, increased vaginal bleeding, vaginal discharge, or any other new/worsening/concerning symptoms. Prescriptions: No Action valacyclovir 500 mg PO DAILY cyclobenzaprine 10 mg tablet 10 mg PO BEDTIME PRN (Reason: pain) Qty: 14 0RF pantoprazole [Protonix] 40 mg tablet,delayed release (DR/EC) 40 mg PO DAILY Qty: 30 0RF dicyclomine 20 mg tablet 20 mg PO TID PRN (Reason: Abdominal Discomfort) Qty: 20 0RF fluoxetine 40 mg capsule 40 mg PO DAILY Interventions: ED Discharge Assessment Last Done: 04/11/25 13:53 Discharge Date/Time: 04/11/25 13:53 Print Language: New Zealander
[2025-04-11 11:46] LABS: MANUAL DIFF FLAG NO
[2025-04-11 11:48] LABS: Appearance Urine Clear; Color Urine Yellow; Glucose Urine UA Negative (Negative); Leukocyte Esterase Urine Negative (Negative); Nitrite Urine Negative (Negative); PH 6.5 (5.0-9.0); Specific Gravity - Urine <= 1.005 (1.005-1.025); Urine Blood Negative (Negative); Urine Ketones Negative (Negative); Urine Protein Negative (Neg-Trace)
[2025-04-11 11:50] LABS: Basophils Absolute Auto 0.1 X10*3/uL (0.0-0.2); Basophils Percent Auto 0.8 % (0-2); Eosinophils Absolute Auto 0.7 X10*3/uL (0.0-0.4); Eosinophils Percent Auto 9.9 % (0-4); Hematocrit 34.7 % (37.0-47.0); Hemoglobin 12.3 g/dl (12.0-16.0); Imm Gran Abs Auto 0.03 X10*3/uL (0.00-0.03); Imm Gran Pct Auto 0.4 % (0.0-0.4); Lymphocytes Absolute Auto 1.6 X10*3/uL (1.2-4.9); Lymphocytes Percent Auto 22.8 % (20-40); Mean Corpuscular HGB Conc 35.4 g/dl (31.0-35.0); Mean Corpuscular Hemoglobin 32.5 pg (27.0-33.0); Mean Corpuscular Volume 91.6 fL (80.0-98.0); Mean Platelet Volume 10.3 fL (9.4-12.3); Monocytes Absolute Auto 0.7 X10*3/uL (0.1-1.2); Neutrophils Percent Auto 56.1 % (45-73); Platelet Count 282 X10*3/uL (160-400); Red Blood Count 3.79 X10*6/uL (4.20-5.50); Red Cell Distribution Width 12.2 % (11.0-16.0); White Blood Count 7.2 X10*3/uL (4.8-10.8)
[2025-04-11 11:58] LABS: INTERNATIONAL NORM RATIO 0.9 (0.9-1.1); Prothrombin Time 10.7 SEC (10.9-12.4)
--- OUTSIDE RECORDS SUMMARY | 2025-04-11 12:13 | XMS_ITS | Clinical Summary ---
Author Organization [facility] Address [address] [place] [address] Phone Care Team Providers Care Rebar Fabricator Name Role Phone Physician, No Pcp Primary Care Provider Unavaila ble Allergies No known active allergies Medications No known medications Encounters Date Type Department Care Team Description 01/11/2025 10:22 PM EDT - 01/12/2025 1:[address] [facility] Emergency [address] [place] [address] Bilateral lower abdominal cramping (Primary [...] LAB MICROBIOLOGY METHOD 01/12/2025 12:14 AM EDT [facility] Influenza A PCR Not Detected Not Detected LAB MICROBIOLOGY METHOD 01/12/2025 12:14 AM EDT [facility] Influenza B PCR Not Detected Not Detected LAB MICROBIOLOGY METHOD 01/12/2025 12:14 AM EDT [facility] Coronavirus 229E Not Detected Not Detected LAB MICROBIOLOGY METHOD 01/12/2025 12:14 AM EDT [facility] Coronavirus HKU1 Not Detected Not Detected LAB MICROBIOLOGY METHOD 01/12/2025 12:14 AM EDT [facility] Coronavirus OC43 Not Detected Not Detected LAB MICROBIOLOGY METHOD 01/12/2025 12:14 AM EDT [facility] Coronavirus NL63 Not Detected Not Detected LAB MICROBIOLOGY METHOD 01/12/2025 12:14 AM EDT [facility] Parainfluenza Virus 1 Not Detected Not Detected LAB MICROBIOLOGY METHOD 01/12/2025 12:14 AM EDT [facility] Parainfluenza Virus 2 Not Detected Not Detected LAB MICROBIOLOGY METHOD 01/12/2025 12:14 AM EDT [facility] Parainfluenza Virus 3 Not Detected Not Detected LAB MICROBIOLOGY METHOD 01/12/2025 12:14 AM EDT [facility] Parainfluenza Virus 4 Not Detected Not Detected LAB MICROBIOLOGY METHOD 01/12/2025 12:14 AM EDT [facility] RSV PCR Not Detected Not Detected LAB MICROBIOLOGY METHOD 01/12/2025 12:14 AM EDT [facility] Human Metapneumovirus A and B Not Detected Not Detected LAB MICROBIOLOGY METHOD 01/12/2025 12:14 AM EDT [facility] Rhinovirus/Entero virus Not Detected Not Detected LAB MICROBIOLOGY METHOD 01/12/2025 12:14 AM EDT [facility] Bordetella pertussis Not Detected Not Detected LAB MICROBIOLOGY METHOD 01/12/2025 12:14 AM EDT [facility] Bordetella parapertussis Not Detected Not Detected LAB MICROBIOLOGY [facility] Mycoplasma pneumo by PCR Not Detected Not Detected LAB MICROBIOLOGY METHOD 01/12/2025 12:14 AM EDT [facility] Chlamydia pneumoniae Not Detected Not Detected LAB MICROBIOLOGY METHOD 01/12/2025 12:14 AM EDT [facility] SARS COV-2 Not Detected Not Detected LAB MICROBIOLOGY METHOD 01/12/2025 12:14 AM EDT [facility] Swab Both anterior nares / Unknown Non-blood Collection / Unknown 01/11/2025 11:09 PM EDT 01/11/2025 11:19 PM EDT [facility] - 01/12/2025 12:14 AM EDT Testing [...] MICROBIOLOGY - GENERAL RADHA RODRIGUEZ Final Result [facility] [address] [place] [address], * POC , urine manually resulted (01/11/2025 10:18 PM EDT) Pathologist [facility] HCG, Ur POC Negative Negative POC hCG Int QC Pass? Yes Yes Urine Urine specimen obtained by clean catch procedure / Unknown 01/11/2025 10:18 PM EDT Helen Pond DO POINT OF CARE TEST ENTER/ EDIT ORDERABLES Final Result * (ABNORMAL) CBC auto differential (01/11/2025 10:17 PM EDT) [facility] WBC 7.8 4.8 - 10.8 K/mcL LAB HEMETOLOGY METHOD 01/11/2025 10:51 PM EDT [facility] RBC 4.00 3.80 - 4.80 M/mcL LAB HEMETOLOGY METHOD 01/11/2025 10:51 PM EDT [facility] Hemoglobin 12.7 11.5 - 16.0 g/dL LAB HEMETOLOGY METHOD 01/11/2025 10:51 PM EDT [facility] Hematocrit 38.2 35.0 - 47.0 % LAB HEMETOLOGY METHOD 01/11/2025 10:51 PM EDT [facility] MCV 95.5 79.0 - 98.0 FL LAB HEMETOLOGY METHOD 01/11/2025 10:51 PM EDT [facility] MCH 31.8 27.0 - 32.0 pcg LAB HEMETOLOGY METHOD 01/11/2025 10:51 PM EDT [facility] MCHC 33.2 32.0 - 37.0 g/dL LAB HEMETOLOGY METHOD 01/11/2025 10:51 PM EDT [facility] RDW 12.8 11.0 - 15.0 % LAB HEMETOLOGY METHOD 01/11/2025 10:51 PM EDT [facility] Platelets 350 130 - 400 K/mcL LAB HEMETOLOGY METHOD 01/11/2025 10:51 PM EDT [facility] MPV 10.8 7.0 - 11.0 FL LAB HEMETOLOGY METHOD 01/11/2025 10:51 PM EDT [facility] NRBC 0.0 <1.0 % LAB HEMETOLOGY METHOD 01/11/2025 10:51 PM EDT [facility] NRBC Absolute 0.00 <0.10 K/mcL LAB HEMETOLOGY METHOD 01/11/2025 10:51 PM EDT [facility] Neutrophils Relative 42.4 % LAB HEMETOLOGY METHOD 01/11/2025 10:51 PM T [facility] Lymphocytes Relative 33.5 % LAB HEMETOLOGY METHOD 01/11/2025 10:51 PM [facility] Monocytes Relative 11.0 % LAB HEMETOLOGY METHOD 01/11/2025 10:51 PM EDT [facility] Eosinophils Relative 12.0 % LAB HEMETOLOGY METHOD 01/11/2025 10:51 PM EDT [facility] Basophils Relative 0.8 % LAB HEMETOLOGY METHOD 01/11/2025 10:51 PM EDT [facility] Immature Granulocytes Relative 0.3 % LAB HEMETOLOGY METHOD 01/11/2025 10:51 PM EDT [facility] Neutrophils Absolute 3.29 1.50 - 7.00 K/mcL LAB HEMETOLOGY METHOD 01/11/2025 10:51 PM EDT [facility] Lymphocytes Absolute 2.60 1.00 - 5.00 K/mcL LAB HEMETOLOGY METHOD 01/11/2025 10:51 PM EDT [facility] Monocytes Absolute 0.85 0.20 - 1.00 K/mcL LAB HEMETOLOGY METHOD 01/11/2025 10:51 PM EDT [facility] Eosinophils Absolute 0.93(H) 0.00 - 0.50 K/[facility] LAB HEMETOLOGY METHOD 01/11/2025 10:51 PM EDT [facility] Basophils Absolute 0.06 0.00 - 0.20 K/[facility] LAB HEMETOLOGY METHOD 01/11/2025 10:51 PM EDT [facility] Immature Granulocytes Absolute 0.02 0.00 - 0.03 K/[facility] LAB HEMETOLOGY METHOD 01/11/2025 10:51 PM EDT [facility] Blood Venous blood specimen / Unknown Venipuncture / Unknown 01/11/2025 10:17 PM EDT 01/11/2025 10:45 PM EDT us Helen Pond DO LAB BLOOD ORDERABLES Ivana l Result [facility] [address] [place] [address], * Lipase (01/11/2025 10:17 PM EDT) Lipase 45 13 - 75 unit/L LAB CHEMISTRY METHOD 01/11/2025 11:10 PM EDT [facility] Blood Venous blood specimen / Unknown Venipuncture / Unknown 01/11/2025 10:17 PM EDT 01/11/2025 10:45 PM EDT us Helen Pond DO LAB BLOOD ORDERABLES Ivana l Result [facility] [address] [place] [address], [place] [phone] * Comprehensive metabolic panel (01/11/2025 10:17 PM EDT) Sodium 138 133 - 145 mmol/L LAB CHEMISTRY METHOD 01/11/2025 11:10 PM EDT [facility] Potassium 3.7 3.5 - 5.5 mmol/L LAB CHEMISTRY METHOD 01/11/2025 11:10 PM [facility] Chloride 104 96 - 110 mmol/L LAB CHEMISTRY METHOD 01/11/2025 11:10 PM [facility] CO2 27 21 - 32 mmol/L LAB CHEMISTRY METHOD 01/11/2025 11:10 PM [facility] Anion Gap 7 3 - 11 LAB CHEMISTRY METHOD 01/11/2025 11:10 PM [facility] Glucose 84 70 - 100 mg/dL LAB CHEMISTRY METHOD 01/11/2025 11:10 PM [facility] BUN 10 5 - 25 mg/dL LAB CHEMISTRY METHOD 01/11/2025 11:10 PM [facility] Creatinine 1.04 0.50 - 1.10 mg/dL LAB CHEMISTRY METHOD 01/11/2025 11:10 PM [facility] eGFR 70 >=60 mL/min/1. 73m2 LAB CHEMISTRY METHOD 01/11/2025 11:10 PM [facility] Comment:Calculation based on the??Chronic Kidney Disease Epidemiology Collaboration (CKD-EPI) equation refit??without adjustment for race. BUN/Creatinine Ratio 9.6 LAB CHEMISTRY METHOD 01/11/2025 11:10 PM [facility] Calcium 9.4 8.5 - 10.5 mg/dL LAB CHEMISTRY METHOD 01/11/2025 11:10 PM EDT [facility] AST (SGOT) 14 10 - 42 unit/L LAB CHEMISTRY METHOD 01/11/2025 11:10 PM EDT [facility] ALT (SGPT) 20 10 - 60 unit/L LAB CHEMISTRY METHOD 01/11/2025 11:10 PM EDT [facility] Alkaline Phosphatase 67 42 - 121 unit/L LAB CHEMISTRY METHOD 01/11/2025 11:10 PM EDT [facility] Total Protein 7.1 6.0 - 8.0 g/dL LAB CHEMISTRY METHOD 01/11/2025 11:10 PM T [facility] Albumin 4.0 3.2 - 5.0 g/dL LAB CHEMISTRY METHOD 01/11/2025 11:10 PM [facility] Total Bilirubin 0.4 0.0 - 1.4 mg/dL LAB CHEMISTRY METHOD 01/11/2025 11:10 PM T [facility] Blood Venous blood specimen / Unknown Venipuncture / Unknown 01/11/2025 10:17 PM EDT 01/11/2025 10:45 PM EDT us Zachery Sabino Pond DO LAB BLOOD ORDERABLES Ivana l Result [facility] [address] [place] [address], * (ABNORMAL) Urinalysis with reflex microscopic and culture (01/11/2025 10:16 PM EDT) Specific [place] Urine 1.030 1.003 - 1.030 LAB URINALYSIS - AUTOMATED METHOD 01/11/2025 10:52 PM [facility] pH, Urine 6.0 5.0 - 8.0 pH LAB URINALYSIS - AUTOMATED METHOD 01/11/2025 10:52 PM [facility] Leukocytes, Urine Negative Negative LAB URINALYSIS - AUTOMATED METHOD 01/11/2025 10:52 PM EDT [facility] Nitrite, Urine Negative Negative LAB URINALYSIS - AUTOMATED METHOD 01/11/2025 10:52 PM EDT [facility] Protein, Urine Trace <=Trace mg/dL LAB URINALYSIS - AUTOMATED METHOD 01/11/2025 10:52 PM EDT [facility] Glucose, Urine Negative Negative mg/dL LAB URINALYSIS - AUTOMATED METHOD 01/11/2025 10:52 PM EDT [facility] Ketones, Urine Trace(A) Negative mg/dL LAB URINALYSIS - AUTOMATED METHOD 01/11/2025 10:52 PM EDT [facility] Urobilinogen, Urine 1.0 0.2 - 1.0 mg/dL LAB URINALYSIS - AUTOMATED METHOD 01/11/2025 10:52 PM [facility] Bilirubin, Urine Negative Negative LAB URINALYSIS - AUTOMATED METHOD 01/11/2025 10:52 PM T [facility] Blood, Urine Negative Negative LAB URINALYSIS - AUTOMATED METHOD 01/11/2025 10:52 PM T [facility] Urine Urine specimen obtained by clean catch procedure / Unknown Non-blood Collection / Unknown 01/11/2025 10:16 PM EDT 01/11/2025 10:46 PM EDT us Helen Pond DO LAB URINE ORDERABLES Ivana l Result [facility] [address] [place] [address], * Reich urine culture tube (01/11/2025 10:16 PM EDT) Extra Tube Hold for add-ons. 01/12/2025 12:01 AM EDT [facility] Comment:Auto resulted. Urine Urine specimen obtained by clean catch procedure / Unknown Non-blood Collection / Unknown 01/11/2025 10:16 PM EDT 01/11/2025 10:45 PM EDT us Helen Pond DO LAB URINE ORDERABLES Ivana crissy Result [facility] [address] [place] [address], [place] [phone] from Last 3 Months Insurance [facility] [place] [id number] Care Teams Rebar Fabricator Relationship Specialty Start Date End Date Physician, No Pcp PCP - General 01/11/25
[2025-04-11 12:14] LABS: Alanine Aminotransferase 16 U/L (0-31); Albumin Level 4.3 g/dL (3.5-5.0); Alkaline Phosphatase 50 U/L (39-117); Anion Gap 12 (12-20); Aspartate Amino Transferase 17 U/L (5-31); Bilirubin Total 0.5 mg/dL (0.0-1.0); Blood Urea Nitrogen 9 mg/dL (9-16); Calcium 9.9 mg/dL (8.4-10.2); Carbon Dioxide 23 mmol/L (22-29); Chloride 105 mmol/L (96-108); Creatinine Clr Calc Pharmacy 109.5; Estimated Glomerular Filt Rate > 60; Glucose Random 75 mg/dL (60-115); Potassium 3.9 mmol/L (3.3-5.1); Sodium 136 mmol/L (135-145)
[2025-04-11] MEDS: Acetaminophen 325 MG TABLET 975 MG PO (12:39)
[2025-04-11 13:00] LABS: HCG Quantitative 63721 mIU/mL
[2025-04-11 13:53] VITALS: BP 119/78; PULSE 72; RESP 16; TEMP 36.2; O2SAT 100
[2025-04-11 14:02] LABS: Bacterial Vaginosis PCR NEGATIVE (Negative); Candida Group PCR NOT DETECTED (Not Detect); Candida glab krusei PCR NOT DETECTED (Not Detect); Trichomonas vaginalis PCR NOT DETECTED (Not Detect)
[2025-04-11 14:34] LABS: CT PCR NOT DETECTED (Not Detect.); NG PCR NOT DETECTED (Not Detect.)
== END 2025-04-11 13:53 | disposition home or self-care (01) ==
PROVIDERS: Registered Nurse Emergency; Emergency Provider Emergency Medicine
DX: O20.9 Hemorrhage in early pregnancy, unspecified (principal); Z3A.12 12 weeks gestation of pregnancy; R10.30 Lower abdominal pain, unspecified
CPT/HCPCS: 36415; 76801; 80053; 81003; 81515; 84702; 85025; 85610; 86900; 86901; 87491; 87591; 99284

== ENCOUNTER → 2025-04-11 11:29 | Outpatient (BNV) | payer OTHER, SELFPAY | PROVIDERS: Emergency Provider Emergency Medicine; Visit Provider Radiology Diagnostic Radiology | DX: O26.852 Spotting complicating pregnancy, second trimester (principal); Z3A.13 13 weeks gestation of pregnancy | CPT/HCPCS: 76801; 76817 ==